=== PATIENT | female | born 1990 | race Caucasian/White ===

== ENCOUNTER 2017-12-25 01:55 | Inpatient (IN) | payer MEDICAID ==
[~2017-12-25] VITALS: Ht 177.8 cm; Wt 77.6 kg
[2017-12-25] MEDS ORDERED: BUSP5TAB20 PO (02:56)
[2017-12-25] MEDS ORDERED: ZIPR20CA2 PO (02:56)
[2017-12-25] MEDS ORDERED: LITH300C3 PO (02:56)
[2017-12-25 03:26] LABS: BASOPHILS % (AUTO) 0.6 % (0.0-2.0); EOSINOPHILS % (AUTO) 4.7 % (1.0-6.0); HEMATOCRIT 40.9 % (41-53); HEMOGLOBIN 14.6 g/dL (13.5-17.5); LYMPHOCYTES # (AUTO) 2.3 K/uL (1.0-4.8); LYMPHOCYTES % (AUTO) 32.1 % (22.0-44.0); MEAN CORPUSCULAR HEMOGLOBIN 30.6 pg (26.0-34.0); MEAN CORPUSCULAR HGB CONC 35.8 G/dL (31.0-37.0); MEAN CORPUSCULAR VOLUME 86 fL (80-100); MONOCYTES # (AUTO) 0.9 K/uL (0.1-1.0); MONOCYTES % (AUTO) 13.2 % (2.0-9.0); NEUTROPHILS # (AUTO) 3.5 K/uL (1.8-7.7); NEUTROPHILS % (AUTO) 49.4 % (40.0-70.0); PLATELET COUNT (AUTO) 295 K/uL (150-450); RED BLOOD CELL COUNT(AUTO) 4.78 MIL/uL (4.50-5.90); RED CELL DISTRIBUTION WIDTH 13.5 % (11.5-14.5)
[2017-12-25 03:31] LABS: ANION GAP 8 mmol/L (8-16); CALCIUM, TOTAL 8.7 mg/dL (8.8-10.5); CARBON DIOXIDE 29 mmol/L (22-29); CHLORIDE 103 mmol/L (98-107); CREATININE 1.04 mg/dL (0.60-1.30); GLOMERULAR FILTR. RATE CALC > 60 mL/min (>60); GLUCOSE,RANDOM 82 mg/dL (70-110); SODIUM SERUM 140 mmol/L (136-145); UREA NITROGEN, BLOOD 20 mg/dL (7-18)
[2017-12-25 03:36] LABS: ALANINE AMINOTRANSFERASE 55 U/L (12-78); ALBUMIN 3.9 g/dL (3.4-5.0); ALKALINE PHOSPHATASE 72 U/L (46-116); ASPARTATE AMINOTRANSFERASE 37 U/L (15-37); BILIRUBIN,TOTAL 0.6 mg/dL (0.1-1.0); TOTAL PROTEIN, SERUM 7.4 g/dL (6.4-8.2)
[2017-12-25] MEDS ORDERED: LORazepam 2 MG TABLET PO PRN (04:15)
[2017-12-25] MEDS ORDERED: HALOPERIDOL 5 MG TABLET PO PRN (04:15)
[2017-12-25] MEDS ORDERED: ZOLPIDEM TARTRATE 10 MG TABLET PO PRN (04:15)
[2017-12-25 04:46] LABS: AMPHET/METH SCREEN,URINE POSITIVE (NEGATIVE); BARBITURATE SCREEN, URINE NEGATIVE (NEGATIVE); BENZODIAZEPINES SCREEN,URINE NEGATIVE (NEGATIVE); CANNABINOID SCREEN,URINE NEGATIVE (NEGATIVE); COCAINE SCREEN,URINE NEGATIVE (NEGATIVE); METHADONE SCREEN, URINE NEGATIVE (NEGATIVE); OPIATE SCREEN,URINE NEGATIVE (NEGATIVE)
[2017-12-25 04:49] LABS: PHENCYCLIDINE SCREEN,URINE NEGATIVE (NEGATIVE)
[2017-12-25] MEDS ORDERED: DiphenhydrAMINE HCL 50 MG/ML VIAL IM ONE (10:30)
[2017-12-25] MEDS ORDERED: LORazepam 2 MG/ML VIAL IM ONE (10:30)
[2017-12-25] MEDS ORDERED: HALOPERIDOL LACTATE 5 MG/ML VIAL IM ONE (10:30)
[2017-12-26] MEDS: LITHIUM CARBONATE 300 MG CAPSULE PO SCH (09:00)
[2017-12-26] MEDS: BusPIRone HCL 5 MG TABLET PO SCH ×2 (09:00→21:00)
[2017-12-26] MEDS: ZIPRASIDONE HCL 40 MG CAPSULE PO SCH (17:30)
[2017-12-27] MEDS: ZIPRASIDONE HCL 40 MG CAPSULE PO SCH ×2 (07:01→17:15)
[2017-12-27] MEDS: BusPIRone HCL 5 MG TABLET PO SCH ×2 (09:27→20:28)
[2017-12-27] MEDS: LITHIUM CARBONATE 300 MG CAPSULE PO SCH (09:27)
[2017-12-27 16:36] VITALS: BP 119/80
[2017-12-28] MEDS: ZIPRASIDONE HCL 40 MG CAPSULE PO SCH (06:43)
[2017-12-28 08:39] VITALS: BP 119/75
[2017-12-28] MEDS: BusPIRone HCL 5 MG TABLET PO SCH ×3 (08:40→20:21)
[2017-12-28] MEDS: LITHIUM CARBONATE 300 MG CAPSULE PO SCH (08:40)
[2017-12-28] MEDS: ZIPRASIDONE HCL 20 MG CAPSULE PO SCH (17:38)
[2017-12-28 19:44] VITALS: BP 148/78
[2017-12-29] MEDS: ZIPRASIDONE HCL 20 MG CAPSULE PO SCH ×2 (07:02→16:58)
[2017-12-29 08:14] VITALS: BP 99/61
[2017-12-29] MEDS: LITHIUM CARBONATE 300 MG CAPSULE PO SCH (09:30)
[2017-12-29] MEDS: BusPIRone HCL 5 MG TABLET PO SCH ×2 (09:30→20:34)
[2017-12-30] MEDS: ZIPRASIDONE HCL 20 MG CAPSULE PO SCH ×2 (06:59→16:16)
[2017-12-30 08:05] VITALS: BP 116/61
[2017-12-30] MEDS: LITHIUM CARBONATE 300 MG CAPSULE PO SCH (08:34)
[2017-12-30] MEDS: BusPIRone HCL 5 MG TABLET PO SCH ×2 (08:34→20:25)
[2017-12-30 17:32] VITALS: BP 112/57
[2017-12-31] MEDS: ZIPRASIDONE HCL 20 MG CAPSULE PO SCH ×2 (06:33→16:52)
[2017-12-31] MEDS: BusPIRone HCL 5 MG TABLET PO SCH ×2 (08:27→20:13)
[2017-12-31] MEDS: LITHIUM CARBONATE 300 MG CAPSULE PO SCH (08:27)
[2017-12-31 16:58] VITALS: BP 121/64
[2018-01-01] MEDS: ZIPRASIDONE HCL 20 MG CAPSULE PO SCH (07:01)
[2018-01-01] MEDS: LITHIUM CARBONATE 300 MG CAPSULE PO SCH (08:30)
[2018-01-01] MEDS: BusPIRone HCL 5 MG TABLET PO SCH (08:30)
[2018-01-01 08:41] VITALS: BP 129/70
== END 2018-01-01 13:15 | disposition home or self-care (01) | DRG 750 ==
LOC: EDSEX 01:57 → EMS 01:57 → 3EC 14:49
DX: F25.0 Schizoaffective disorder, bipolar type (principal); E83.51 Hypocalcemia; R45.851 Suicidal ideations; F41.9 Anxiety disorder, unspecified; G47.00 Insomnia, unspecified; F19.10 Other psychoactive substance abuse, uncomplicated; F15.10 Other stimulant abuse, uncomplicated; Z79.899 Other long term (current) drug therapy; Z87.891 Personal history of nicotine dependence
CPT/HCPCS: 96372; 99285; G0480; J1200; J1630; J2060

== ENCOUNTER 2018-01-10 23:31 | Inpatient (IN) | payer MEDICAID ==
[~2018-01-10] VITALS: Ht 177.8 cm; Wt 68.5 kg
[~2018-01-10 23:31] MED LIST: BUSP5TAB20 PO; LITH300C3 PO; ZIPR20CA2 PO
[2018-01-11] MEDS ORDERED: ZOLPIDEM TARTRATE 10 MG TABLET PO PRN (05:00)
[2018-01-11] MEDS ORDERED: HALOPERIDOL 5 MG TABLET PO PRN (05:00)
[2018-01-11 05:44] VITALS: BP 120/71
[2018-01-11 08:30] VITALS: BP 151/63
[2018-01-11] MEDS ORDERED: ACETAMINOPHEN 325 MG TABLET PO PRN (11:00)
[2018-01-11] MEDS ORDERED: PETROLATUM,WHITE 71 GM JELLY TP PRN (11:00)
[2018-01-11] MEDS ORDERED: MAG HYDROX/AL HYDROX/SIMETH ES 30 ML SUSPENSION UDCUP PO PRN (11:00)
[2018-01-11] MEDS ORDERED: DOCUSATE SODIUM 100 MG CAPSULE PO PRN (11:00)
[2018-01-11] MEDS ORDERED: ALBUTEROL SULFATE HFA 90 MCG/PUFF 8 GM INHALER IH PRN (11:00)
[2018-01-11] MEDS ORDERED: IBUPROFEN 400 MG TABLET PO PRN (11:00)
[2018-01-11] MEDS ORDERED: ONDANSETRON HCL 4 MG TABLET PO PRN (11:00)
[2018-01-11] MEDS ORDERED: MAGNESIUM HYDROXIDE SUSPENSION 30 ML UDCUP PO PRN (11:00)
[2018-01-11 17:00] VITALS: BP 130/78
[2018-01-11] MEDS ORDERED: ZIPRASIDONE HCL 20 MG CAPSULE PO SCH (17:30)
[2018-01-11] MEDS: LITHIUM CARBONATE 300 MG CAPSULE PO SCH (17:45)
[2018-01-11] MEDS: BusPIRone HCL 5 MG TABLET PO SCH (21:17)
[2018-01-12] MEDS: ZIPRASIDONE HCL 40 MG CAPSULE PO SCH ×2 (07:08→17:30)
[2018-01-12 08:41] VITALS: BP 120/63
[2018-01-12] MEDS: BusPIRone HCL 5 MG TABLET PO SCH ×2 (08:48→20:48)
[2018-01-12] MEDS: LITHIUM CARBONATE 300 MG CAPSULE PO SCH ×2 (08:48→16:02)
[2018-01-12] MEDS: NICOTINE 14 MG/24 HOUR PATCH TD SCH (08:52)
[2018-01-12] MEDS: MUPIROCIN CALCIUM 2% 22 GM OINTMENT NASAL SCH (12:59)
[2018-01-12 18:17] VITALS: BP 111/58
[2018-01-13] MEDS: ZIPRASIDONE HCL 40 MG CAPSULE PO SCH ×2 (06:45→16:17)
[2018-01-13] MEDS: BusPIRone HCL 5 MG TABLET PO SCH ×2 (08:31→21:32)
[2018-01-13] MEDS: LITHIUM CARBONATE 300 MG CAPSULE PO SCH ×2 (08:31→16:17)
[2018-01-13] MEDS: MUPIROCIN CALCIUM 2% 22 GM OINTMENT NASAL SCH (09:00)
[2018-01-13] MEDS: NICOTINE 14 MG/24 HOUR PATCH TD SCH (09:00)
[2018-01-13 09:31] VITALS: BP 118/67
[2018-01-13 16:26] VITALS: BP 131/75
[2018-01-14] MEDS: ZIPRASIDONE HCL 40 MG CAPSULE PO SCH (06:48)
[2018-01-14] MEDS: BusPIRone HCL 5 MG TABLET PO SCH (08:15)
[2018-01-14] MEDS: LITHIUM CARBONATE 300 MG CAPSULE PO SCH ×2 (08:15→16:58)
[2018-01-14] MEDS: NICOTINE 14 MG/24 HOUR PATCH TD SCH (09:00)
[2018-01-14] MEDS: MUPIROCIN CALCIUM 2% 22 GM OINTMENT NASAL SCH (09:00)
[2018-01-14 10:06] VITALS: BP 104/62
[2018-01-14] MEDS: ZIPRASIDONE HCL 60 MG CAPSULE PO SCH (16:57)
[2018-01-14] MEDS: BusPIRone HCL 10 MG TABLET PO SCH (20:11)
[2018-01-15] MEDS: ZIPRASIDONE HCL 60 MG CAPSULE PO SCH (06:50)
[2018-01-15] MEDS: BusPIRone HCL 10 MG TABLET PO SCH ×2 (07:54→21:00)
[2018-01-15] MEDS: LITHIUM CARBONATE 300 MG CAPSULE PO SCH ×2 (07:54→16:27)
[2018-01-15] MEDS: MUPIROCIN CALCIUM 2% 22 GM OINTMENT NASAL SCH (07:57)
[2018-01-15] MEDS: LORazepam 2 MG TABLET PO PRN (08:01)
[2018-01-15] MEDS: NICOTINE 14 MG/24 HOUR PATCH TD SCH (09:00)
[2018-01-15 09:30] VITALS: BP 108/70
[2018-01-15] MEDS: ZIPRASIDONE HCL 80 MG CAPSULE PO SCH (16:27)
[2018-01-15 16:48] VITALS: BP 107/60
[2018-01-16] MEDS: ZIPRASIDONE HCL 60 MG CAPSULE PO SCH (06:52)
[2018-01-16] MEDS: MUPIROCIN CALCIUM 2% 22 GM OINTMENT NASAL SCH (08:16)
[2018-01-16] MEDS: BusPIRone HCL 10 MG TABLET PO SCH ×2 (08:18→20:36)
[2018-01-16] MEDS: LITHIUM CARBONATE 300 MG CAPSULE PO SCH ×2 (08:18→18:03)
[2018-01-16] MEDS: NICOTINE 14 MG/24 HOUR PATCH TD SCH (08:23)
[2018-01-16 08:30] VITALS: BP 123/70
[2018-01-16] MEDS: ZIPRASIDONE HCL 80 MG CAPSULE PO SCH (18:03)
[2018-01-16] MEDS: LORazepam 2 MG TABLET PO PRN (22:15)
[2018-01-17] MEDS: ZIPRASIDONE HCL 60 MG CAPSULE PO SCH (06:45)
[2018-01-17 08:04] VITALS: BP 138/90
[2018-01-17] MEDS: MUPIROCIN CALCIUM 2% 22 GM OINTMENT NASAL SCH (08:07)
[2018-01-17] MEDS: LITHIUM CARBONATE 300 MG CAPSULE PO SCH (08:07)
[2018-01-17] MEDS: BusPIRone HCL 10 MG TABLET PO SCH (08:07)
[2018-01-17] MEDS: LORazepam 2 MG TABLET PO PRN (08:27)
[2018-01-17] MEDS ORDERED: BUSP10TA23 PO (08:43)
[2018-01-17] MEDS ORDERED: ZIPR60CA2 PO (08:43)
[2018-01-17] MEDS ORDERED: LITH300C3 PO (08:43)
[2018-01-17] MEDS ORDERED: ZIPR80CA2 PO (08:43)
[2018-01-17] MEDS: NICOTINE 14 MG/24 HOUR PATCH TD SCH (09:00)
== END 2018-01-17 13:30 | disposition home or self-care (01) | DRG 750 ==
LOC: EDSEX → 3EC 01-11 01:30
DX: F25.1 Schizoaffective disorder, depressive type (principal); R45.851 Suicidal ideations; E83.51 Hypocalcemia; F41.9 Anxiety disorder, unspecified; G47.00 Insomnia, unspecified; F19.10 Other psychoactive substance abuse, uncomplicated; F17.200 Nicotine dependence, unspecified, uncomplicated; F64.9 Gender identity disorder, unspecified; Z91.19 Patient's noncompliance with other medical treatment and regimen; Z79.899 Other long term (current) drug therapy; Z65.3 Problems related to other legal circumstances
CPT/HCPCS: 87081

== ENCOUNTER 2018-04-12 18:07 | Inpatient (IN) | payer MEDICAID ==
[~2018-04-12] VITALS: Ht 177.8 cm; Wt 75.1 kg
[~2018-04-12 18:07] MED LIST changes: +BUSP10TA23 PO; -BUSP5TAB20 PO; -ZIPR20CA2 PO; +ZIPR60CA2 PO; +ZIPR80CA2 PO
[2018-04-12 19:30] LABS: BASOPHILS % (AUTO) 0.3 % (0.0-2.0); EOSINOPHILS % (AUTO) 1.6 % (1.0-6.0); HEMATOCRIT 41.8 % (36-46); HEMOGLOBIN 14.2 g/dL (12.0-16.0); LYMPHOCYTES # (AUTO) 1.7 K/uL (1.0-4.8); LYMPHOCYTES % (AUTO) 22.8 % (22.0-44.0); MEAN CORPUSCULAR HEMOGLOBIN 30.1 pg (26.0-34.0); MEAN CORPUSCULAR HGB CONC 34.1 G/dL (31.0-37.0); MEAN CORPUSCULAR VOLUME 88 fL (80-100); MONOCYTES # (AUTO) 0.7 K/uL (0.1-1.0); MONOCYTES % (AUTO) 10.3 % (2.0-9.0); NEUTROPHILS # (AUTO) 4.7 K/uL (1.8-7.7); PLATELET COUNT (AUTO) 233 K/uL (150-450); RED BLOOD CELL COUNT(AUTO) 4.74 MIL/uL (4.00-5.20); RED CELL DISTRIBUTION WIDTH 12.9 % (11.5-14.5)
[2018-04-12 19:43] LABS: ANION GAP 6 mmol/L (8-16); CALCIUM, TOTAL 8.6 mg/dL (8.8-10.5); CARBON DIOXIDE 31 mmol/L (22-29); CHLORIDE 101 mmol/L (98-107); CREATININE 0.98 mg/dL (0.60-1.30); GLOMERULAR FILTR. RATE CALC > 60 mL/min (>60); GLUCOSE,RANDOM 89 mg/dL (70-110); POTASSIUM 3.8 mmol/L (3.5-5.1); SODIUM SERUM 138 mmol/L (136-145); UREA NITROGEN, BLOOD 15 mg/dL (7-18)
[2018-04-12 19:48] LABS: ALANINE AMINOTRANSFERASE 29 U/L (12-78); ALBUMIN 3.7 g/dL (3.4-5.0); ALKALINE PHOSPHATASE 55 U/L (46-116); ASPARTATE AMINOTRANSFERASE 13 U/L (15-37); BILIRUBIN,TOTAL 0.2 mg/dL (0.1-1.0); TOTAL PROTEIN, SERUM 7.1 g/dL (6.4-8.2)
[2018-04-12 20:22] LABS: LITHIUM < 0.20 mmol/L (0.60-1.20)
[2018-04-12 22:03] VITALS: BP 142/76
[2018-04-12] MEDS ORDERED: PNEUMOCOCCAL VACCINE POLYVALENT 0.5 ML VIAL [PPSV23] IM ONE (22:45)
[2018-04-12 22:58] VITALS: BP 142/76
[2018-04-12] MEDS ORDERED: ONDANSETRON HCL 4 MG TABLET PO PRN (23:00)
[2018-04-12] MEDS ORDERED: ACETAMINOPHEN 325 MG TABLET PO PRN (23:00)
[2018-04-12] MEDS ORDERED: DOCUSATE SODIUM 100 MG CAPSULE PO PRN (23:00)
[2018-04-12] MEDS ORDERED: LOPERAMIDE HCL 2 MG CAPSULE PO PRN (23:00)
[2018-04-12] MEDS ORDERED: CloNIDine HCL 0.1 MG TABLET PO PRN (23:00)
[2018-04-12] MEDS ORDERED: IBUPROFEN 400 MG TABLET PO PRN (23:00)
[2018-04-12] MEDS ORDERED: GuaiFENesin/D-METHORPHAN [SUGAR-FREE] 200-20MG/10 ML SYRUP UDCUP PO PRN (23:00)
[2018-04-12] MEDS ORDERED: ALBUTEROL SULFATE HFA 90 MCG/PUFF 8 GM INHALER IH PRN (23:00)
[2018-04-12] MEDS ORDERED: MAG HYDROX/AL HYDROX/SIMETH ES 30 ML SUSPENSION UDCUP PO PRN (23:00)
[2018-04-12] MEDS ORDERED: PETROLATUM,WHITE 71 GM JELLY TP PRN (23:00)
[2018-04-13] MEDS: ZIPRASIDONE HCL 60 MG CAPSULE PO SCH (13:38)
[2018-04-13 16:30] VITALS: BP 130/85
[2018-04-13] MEDS: LITHIUM CARBONATE 300 MG CAPSULE PO SCH (17:23)
[2018-04-13] MEDS: ZIPRASIDONE HCL 80 MG CAPSULE PO SCH (17:23)
[2018-04-13] MEDS: BusPIRone HCL 10 MG TABLET PO SCH (17:23)
[2018-04-14] MEDS: ZIPRASIDONE HCL 80 MG CAPSULE PO SCH (07:23)
[2018-04-14] MEDS: ZIPRASIDONE HCL 60 MG CAPSULE PO SCH (07:25)
[2018-04-14] MEDS: BusPIRone HCL 10 MG TABLET PO SCH ×2 (08:48→16:33)
[2018-04-14] MEDS: LITHIUM CARBONATE 300 MG CAPSULE PO SCH ×2 (08:48→16:33)
[2018-04-14 09:31] VITALS: BP 100/45
[2018-04-14 19:32] VITALS: BP 127/56
[2018-04-15] MEDS: ZIPRASIDONE HCL 60 MG CAPSULE PO SCH (07:02)
[2018-04-15] MEDS: LITHIUM CARBONATE 300 MG CAPSULE PO SCH ×2 (09:52→17:07)
[2018-04-15] MEDS: BusPIRone HCL 10 MG TABLET PO SCH ×2 (09:52→17:07)
[2018-04-15 13:00] VITALS: BP 122/74
[2018-04-15] MEDS: HALOPERIDOL 5 MG TABLET PO PRN (13:10)
[2018-04-15] MEDS: LORazepam 2 MG TABLET PO PRN (13:10)
[2018-04-15 17:02] VITALS: BP 124/67
[2018-04-15] MEDS: ZIPRASIDONE HCL 80 MG CAPSULE PO SCH (17:07)
[2018-04-15] MEDS: MUPIROCIN CALCIUM 2% 22 GM OINTMENT NASAL SCH (21:27)
[2018-04-15] MEDS: ZOLPIDEM TARTRATE 10 MG TABLET PO PRN (21:34)
[2018-04-16] MEDS: ZIPRASIDONE HCL 60 MG CAPSULE PO SCH (06:48)
[2018-04-16 08:05] VITALS: BP 112/80
[2018-04-16] MEDS: BusPIRone HCL 10 MG TABLET PO SCH ×2 (09:09→17:31)
[2018-04-16] MEDS: LITHIUM CARBONATE 300 MG CAPSULE PO SCH ×2 (09:09→17:31)
[2018-04-16] MEDS: MUPIROCIN CALCIUM 2% 22 GM OINTMENT NASAL SCH ×2 (09:11→17:31)
[2018-04-16] MEDS: LORazepam 2 MG TABLET PO PRN (13:00)
[2018-04-16] MEDS: ZIPRASIDONE HCL 80 MG CAPSULE PO SCH (17:32)
[2018-04-16 18:15] VITALS: BP 108/72
[2018-04-17] VITALS: BP 122/76
[2018-04-17] MEDS: ZIPRASIDONE HCL 60 MG CAPSULE PO SCH (06:56)
[2018-04-17 08:05] VITALS: BP 107/68
[2018-04-17] MEDS: BusPIRone HCL 10 MG TABLET PO SCH ×2 (09:47→16:51)
[2018-04-17] MEDS: LITHIUM CARBONATE 300 MG CAPSULE PO SCH ×2 (09:47→16:50)
[2018-04-17] MEDS: MUPIROCIN CALCIUM 2% 22 GM OINTMENT NASAL SCH ×2 (09:47→16:50)
[2018-04-17] MEDS: ZIPRASIDONE HCL 80 MG CAPSULE PO SCH (16:50)
[2018-04-17] MEDS: HALOPERIDOL 5 MG TABLET PO PRN ×2 (18:13→22:26)
[2018-04-17] MEDS: ZOLPIDEM TARTRATE 10 MG TABLET PO PRN (20:54)
[2018-04-17 21:41] VITALS: BP 112/70
[2018-04-18] MEDS: ZIPRASIDONE HCL 80 MG CAPSULE PO SCH ×2 (06:46→16:05)
[2018-04-18] MEDS: HALOPERIDOL 5 MG TABLET PO PRN ×3 (07:00→20:26)
[2018-04-18] MEDS: MUPIROCIN CALCIUM 2% 22 GM OINTMENT NASAL SCH ×2 (08:26→16:06)
[2018-04-18] MEDS: BusPIRone HCL 10 MG TABLET PO SCH ×2 (08:27→16:04)
[2018-04-18] MEDS: LITHIUM CARBONATE 300 MG CAPSULE PO SCH ×2 (08:27→16:05)
[2018-04-18] MEDS: LORazepam 2 MG TABLET PO PRN (08:29)
[2018-04-18 14:21] VITALS: BP 131/75
[2018-04-18 19:17] VITALS: BP 139/56
[2018-04-19] MEDS: ZIPRASIDONE HCL 80 MG CAPSULE PO SCH ×2 (07:19→17:18)
[2018-04-19 08:00] VITALS: BP 138/81
[2018-04-19] MEDS: MUPIROCIN CALCIUM 2% 22 GM OINTMENT NASAL SCH ×2 (09:00→17:17)
[2018-04-19] MEDS: BusPIRone HCL 10 MG TABLET PO SCH ×2 (09:27→17:18)
[2018-04-19] MEDS: LITHIUM CARBONATE 300 MG CAPSULE PO SCH ×2 (09:27→17:18)
[2018-04-19] MEDS: TESTOSTERONE CYPIONATE 200 MG/ML VIAL IM SCH (09:41)
[2018-04-19] MEDS: MAGNESIUM HYDROXIDE SUSPENSION 30 ML UDCUP PO PRN (13:40)
[2018-04-19 19:38] VITALS: BP 107/64
[2018-04-19] MEDS: HALOPERIDOL 5 MG TABLET PO PRN (20:30)
[2018-04-20] MEDS: ZIPRASIDONE HCL 80 MG CAPSULE PO SCH ×2 (06:56→16:46)
[2018-04-20 08:32] VITALS: BP 126/72
[2018-04-20] MEDS: MUPIROCIN CALCIUM 2% 22 GM OINTMENT NASAL SCH ×2 (09:25→16:46)
[2018-04-20] MEDS: BusPIRone HCL 10 MG TABLET PO SCH ×2 (09:25→16:46)
[2018-04-20] MEDS: HALOPERIDOL 5 MG TABLET PO PRN ×2 (09:26→19:54)
[2018-04-20] MEDS: LORazepam 2 MG TABLET PO PRN (09:26)
[2018-04-20] MEDS: LITHIUM CARBONATE 300 MG CAPSULE PO SCH ×2 (09:26→16:46)
[2018-04-20 17:00] VITALS: BP 149/58
[2018-04-21] MEDS: ZIPRASIDONE HCL 80 MG CAPSULE PO SCH ×2 (07:01→16:35)
[2018-04-21] MEDS: LITHIUM CARBONATE 300 MG CAPSULE PO SCH ×2 (09:03→16:35)
[2018-04-21] MEDS: BusPIRone HCL 10 MG TABLET PO SCH ×2 (09:03→16:34)
[2018-04-21 10:17] VITALS: BP 110/71
[2018-04-21] MEDS: MAGNESIUM HYDROXIDE SUSPENSION 30 ML UDCUP PO PRN ×2 (12:59→20:52)
[2018-04-21] MEDS: HALOPERIDOL 5 MG TABLET PO PRN (20:23)
[2018-04-22] MEDS: ZIPRASIDONE HCL 80 MG CAPSULE PO SCH ×2 (06:57→17:17)
[2018-04-22] MEDS: LITHIUM CARBONATE 300 MG CAPSULE PO SCH ×2 (09:44→17:17)
[2018-04-22] MEDS: BusPIRone HCL 10 MG TABLET PO SCH ×2 (09:44→17:17)
[2018-04-22] MEDS: MAGNESIUM HYDROXIDE SUSPENSION 30 ML UDCUP PO PRN ×2 (09:45→20:35)
[2018-04-22 09:48] VITALS: BP 101/54
[2018-04-22] MEDS: ZOLPIDEM TARTRATE 10 MG TABLET PO PRN (20:46)
[2018-04-22] MEDS: HALOPERIDOL 5 MG TABLET PO PRN (20:46)
[2018-04-22] MEDS: LORazepam 2 MG TABLET PO PRN (20:46)
[2018-04-22 22:08] VITALS: BP 150/71
[2018-04-23 05:35] VITALS: BP 135/81
[2018-04-23] MEDS: ZIPRASIDONE HCL 80 MG CAPSULE PO SCH ×2 (06:48→16:31)
[2018-04-23 09:37] VITALS: BP 125/79
[2018-04-23] MEDS: BusPIRone HCL 10 MG TABLET PO SCH ×2 (09:45→16:31)
[2018-04-23] MEDS: LITHIUM CARBONATE 300 MG CAPSULE PO SCH ×2 (09:45→16:31)
[2018-04-23] MEDS: MAGNESIUM HYDROXIDE SUSPENSION 30 ML UDCUP PO PRN (16:33)
[2018-04-23 17:47] VITALS: BP 122/73
[2018-04-24] MEDS: ZIPRASIDONE HCL 80 MG CAPSULE PO SCH ×2 (06:52→16:46)
[2018-04-24 08:22] VITALS: BP 125/76
[2018-04-24] MEDS: LITHIUM CARBONATE 300 MG CAPSULE PO SCH ×2 (10:13→16:46)
[2018-04-24] MEDS: BusPIRone HCL 10 MG TABLET PO SCH ×2 (10:13→16:46)
[2018-04-24 17:21] VITALS: BP 111/68
[2018-04-24 17:23] VITALS: BP 111/68
[2018-04-24] MEDS: HALOPERIDOL 5 MG TABLET PO PRN (20:56)
[2018-04-25] MEDS: ZIPRASIDONE HCL 80 MG CAPSULE PO SCH ×2 (06:31→16:24)
[2018-04-25] MEDS: BusPIRone HCL 10 MG TABLET PO SCH ×2 (10:26→17:59)
[2018-04-25] MEDS: LITHIUM CARBONATE 300 MG CAPSULE PO SCH ×2 (10:26→17:59)
[2018-04-25] MEDS: HALOPERIDOL 5 MG TABLET PO PRN (20:45)
[2018-04-26] MEDS: ZIPRASIDONE HCL 80 MG CAPSULE PO SCH ×2 (06:50→17:47)
[2018-04-26] MEDS: BusPIRone HCL 10 MG TABLET PO SCH ×2 (10:43→17:47)
[2018-04-26] MEDS: LITHIUM CARBONATE 300 MG CAPSULE PO SCH ×2 (10:44→17:47)
[2018-04-26] MEDS: TESTOSTERONE CYPIONATE 200 MG/ML VIAL IM SCH (11:23)
[2018-04-26 19:06] VITALS: BP 141/78
[2018-04-27] MEDS: ZIPRASIDONE HCL 80 MG CAPSULE PO SCH ×2 (06:51→16:34)
[2018-04-27 08:05] VITALS: BP 129/75
[2018-04-27] MEDS: BusPIRone HCL 10 MG TABLET PO SCH ×2 (08:55→16:34)
[2018-04-27] MEDS: LITHIUM CARBONATE 300 MG CAPSULE PO SCH ×2 (08:55→17:34)
[2018-04-27] MEDS: HALOPERIDOL 5 MG TABLET PO PRN (10:07)
[2018-04-27 16:00] VITALS: BP 110/60
[2018-04-27] MEDS: LORazepam 2 MG TABLET PO PRN (17:34)
[2018-04-28] MEDS: ZIPRASIDONE HCL 80 MG CAPSULE PO SCH ×2 (06:45→17:15)
[2018-04-28] MEDS: BusPIRone HCL 10 MG TABLET PO SCH ×2 (10:07→17:14)
[2018-04-28] MEDS: LITHIUM CARBONATE 300 MG CAPSULE PO SCH ×2 (10:07→17:14)
[2018-04-28] MEDS: LORazepam 2 MG TABLET PO PRN (10:53)
[2018-04-28 16:40] VITALS: BP 120/72
[2018-04-28] MEDS: HALOPERIDOL 5 MG TABLET PO PRN (23:40)
[2018-04-29] MEDS: LORazepam 2 MG TABLET PO PRN (00:17)
[2018-04-29 00:45] VITALS: BP 129/84
[2018-04-29] MEDS: ZIPRASIDONE HCL 80 MG CAPSULE PO SCH ×2 (06:50→17:52)
[2018-04-29 09:31] VITALS: BP 136/72
[2018-04-29] MEDS: BusPIRone HCL 10 MG TABLET PO SCH ×2 (09:32→16:26)
[2018-04-29] MEDS: LITHIUM CARBONATE 300 MG CAPSULE PO SCH ×2 (09:32→16:26)
[2018-04-29 21:39] VITALS: BP 123/64
[2018-04-30] MEDS: ZIPRASIDONE HCL 80 MG CAPSULE PO SCH (07:08)
[2018-04-30 08:00] VITALS: BP 129/60
[2018-04-30] MEDS: LITHIUM CARBONATE 300 MG CAPSULE PO SCH (09:00)
[2018-04-30] MEDS: BusPIRone HCL 10 MG TABLET PO SCH (09:00)
[2018-04-30] MEDS ORDERED: BUSP10TA23 PO (12:40)
[2018-04-30] MEDS ORDERED: LITH600 PO (12:47)
[2018-04-30] MEDS ORDERED: ZIPR80CA2 PO (12:48)
[2018-04-30] MEDS ORDERED: TEST200V27 IM (12:52)
== END 2018-04-30 14:39 | disposition home or self-care (01) | DRG 750 ==
LOC: EMS 18:08 → 3EI 21:00
PROVIDERS: ADMIT Psychiatry & Neurology Psychiatry; ATTEND Psychiatry & Neurology Psychiatry
DX: F25.0 Schizoaffective disorder, bipolar type (principal); R45.851 Suicidal ideations; Z59.0 Homelessness; F17.200 Nicotine dependence, unspecified, uncomplicated; F41.9 Anxiety disorder, unspecified; F64.9 Gender identity disorder, unspecified; G47.00 Insomnia, unspecified; Z65.3 Problems related to other legal circumstances; Z28.21 Immunization not carried out because of patient refusal
CPT/HCPCS: 87081; G0480; J1071

== ENCOUNTER 2018-08-07 14:31 | Emergency (ER) | payer MEDICAID, OTHER ==
[~2018-08-07] VITALS: Ht 177.8 cm; Wt 72.7 kg
[~2018-08-07 14:31] MED LIST changes: -LITH300C3 PO; +LITH600 PO; +TEST200V27 IM; -ZIPR60CA2 PO
[2018-08-07 15:53] LABS: ANION GAP 8 mmol/L (8-16); CALCIUM, TOTAL 8.7 mg/dL (8.8-10.5); CARBON DIOXIDE 28 mmol/L (22-29); CHLORIDE 104 mmol/L (98-107); CREATININE 1.03 mg/dL (0.60-1.30); GLOMERULAR FILTR. RATE CALC > 60 mL/min (>60); GLUCOSE,RANDOM 80 mg/dL (70-110); POTASSIUM 3.8 mmol/L (3.5-5.1); SODIUM SERUM 140 mmol/L (136-145); UREA NITROGEN, BLOOD 16 mg/dL (7-18)
[2018-08-07 15:55] LABS: BASOPHILS % (AUTO) 0.6 % (0.0-2.0); EOSINOPHILS % (AUTO) 6.4 % (1.0-6.0); HEMOGLOBIN 15.1 g/dL (13.5-17.5); LYMPHOCYTES # (AUTO) 1.6 K/uL (1.0-4.8); LYMPHOCYTES % (AUTO) 27.8 % (22.0-44.0); MEAN CORPUSCULAR HEMOGLOBIN 29.8 pg (26.0-34.0); MEAN CORPUSCULAR HGB CONC 33.6 G/dL (31.0-37.0); MEAN CORPUSCULAR VOLUME 89 fL (80-100); MONOCYTES # (AUTO) 0.6 K/uL (0.1-1.0); MONOCYTES % (AUTO) 10.6 % (2.0-9.0); NEUTROPHILS # (AUTO) 3.2 K/uL (1.8-7.7); NEUTROPHILS % (AUTO) 54.6 % (40.0-70.0); PLATELET COUNT (AUTO) 218 K/uL (150-450); RED BLOOD CELL COUNT(AUTO) 5.09 MIL/uL (4.50-5.90); RED CELL DISTRIBUTION WIDTH 12.6 % (11.5-14.5)
[2018-08-07 15:58] LABS: ALANINE AMINOTRANSFERASE 31 U/L (12-78); ALBUMIN 3.6 g/dL (3.4-5.0); ALKALINE PHOSPHATASE 49 U/L (46-116); ASPARTATE AMINOTRANSFERASE 20 U/L (15-37); BILIRUBIN,TOTAL 0.3 mg/dL (0.1-1.0); TOTAL PROTEIN, SERUM 6.6 g/dL (6.4-8.2)
[2018-08-07 16:27] LABS: PLATELET MORPHOLOGY COMMENT NORMAL
[2018-08-07] MEDS ORDERED: KETOROLAC TROMETHAMINE 10 MG TABLET PO ONE (17:15)
[2018-08-07 17:26] VITALS: BP 111/65
== END 2018-08-07 17:37 | disposition home or self-care (01) ==
LOC: EMS 14:32
DX: M94.0 Chondrocostal junction syndrome [Tietze] (principal); F20.9 Schizophrenia, unspecified; Z79.899 Other long term (current) drug therapy; Z87.891 Personal history of nicotine dependence
CPT/HCPCS: 93005

== ENCOUNTER 2018-09-21 19:29 | Inpatient (IN) | payer MEDICAID, OTHER ==
[~2018-09-21] VITALS: Ht 177.8 cm; Wt 76.9 kg
[2018-09-21 20:15] LABS: BASOPHILS % (AUTO) 0.4 % (0.0-2.0); EOSINOPHILS % (AUTO) 5.4 % (1.0-6.0); HEMATOCRIT 39.8 % (41-53); HEMOGLOBIN 13.9 g/dL (13.5-17.5); LYMPHOCYTES # (AUTO) 1.9 K/uL (1.0-4.8); LYMPHOCYTES % (AUTO) 32.5 % (22.0-44.0); MEAN CORPUSCULAR HEMOGLOBIN 29.7 pg (26.0-34.0); MEAN CORPUSCULAR HGB CONC 34.9 G/dL (31.0-37.0); MEAN CORPUSCULAR VOLUME 85 fL (80-100); MONOCYTES # (AUTO) 0.7 K/uL (0.1-1.0); MONOCYTES % (AUTO) 12.5 % (2.0-9.0); NEUTROPHILS # (AUTO) 2.9 K/uL (1.8-7.7); NEUTROPHILS % (AUTO) 49.2 % (40.0-70.0); PLATELET COUNT (AUTO) 233 K/uL (150-450); RED BLOOD CELL COUNT(AUTO) 4.67 MIL/uL (4.50-5.90); RED CELL DISTRIBUTION WIDTH 12.7 % (11.5-14.5)
[2018-09-21 20:30] LABS: ANION GAP 4 mmol/L (8-16); CALCIUM, TOTAL 8.9 mg/dL (8.8-10.5); CARBON DIOXIDE 31 mmol/L (22-29); CHLORIDE 104 mmol/L (98-107); CREATININE 1.11 mg/dL (0.60-1.30); GLOMERULAR FILTR. RATE CALC > 60 mL/min (>60); GLUCOSE,RANDOM 67 mg/dL (70-110); POTASSIUM 3.5 mmol/L (3.5-5.1); SODIUM SERUM 139 mmol/L (136-145); UREA NITROGEN, BLOOD 19 mg/dL (7-18)
[2018-09-21 20:38] LABS: ALANINE AMINOTRANSFERASE 52 U/L (12-78); ALBUMIN 3.4 g/dL (3.4-5.0); ALKALINE PHOSPHATASE 65 U/L (46-116); ASPARTATE AMINOTRANSFERASE 67 U/L (15-37); BILIRUBIN,TOTAL 0.8 mg/dL (0.1-1.0); TOTAL PROTEIN, SERUM 6.6 g/dL (6.4-8.2)
[2018-09-21 21:32] LABS: AMPHET/METH SCREEN,URINE NEGATIVE (NEGATIVE); BARBITURATE SCREEN, URINE NEGATIVE (NEGATIVE); BENZODIAZEPINES SCREEN,URINE NEGATIVE (NEGATIVE); CANNABINOID SCREEN,URINE NEGATIVE (NEGATIVE); COCAINE SCREEN,URINE NEGATIVE (NEGATIVE); METHADONE SCREEN, URINE NEGATIVE (NEGATIVE); OPIATE SCREEN,URINE NEGATIVE (NEGATIVE)
[2018-09-21 21:35] LABS: PHENCYCLIDINE SCREEN,URINE NEGATIVE (NEGATIVE)
[2018-09-21 22:35] LABS: HCG,QUANTITATIVE < 1 mIU/mL (0-6)
[2018-09-21 22:44] LABS: LITHIUM 1.27 mmol/L (0.60-1.20)
[2018-09-22] MEDS ORDERED: ZOLPIDEM TARTRATE 10 MG TABLET PO PRN (01:45)
[2018-09-22] MEDS ORDERED: LORazepam 2 MG TABLET PO PRN (01:45)
[2018-09-22] MEDS ORDERED: HALOPERIDOL 5 MG TABLET PO PRN (01:45)
[2018-09-22 03:00] VITALS: BP 132/95
[2018-09-22] MEDS ORDERED: ALBUTEROL SULFATE HFA 90 MCG/PUFF 8 GM INHALER IH PRN (07:15)
[2018-09-22] MEDS ORDERED: MAG HYDROX/AL HYDROX/SIMETH ES 30 ML SUSPENSION UDCUP PO PRN (07:15)
[2018-09-22] MEDS ORDERED: ONDANSETRON HCL 4 MG TABLET PO PRN (07:15)
[2018-09-22] MEDS ORDERED: NICOTINE 14 MG/24 HOUR PATCH TD PRN (07:15)
[2018-09-22] MEDS ORDERED: IBUPROFEN 400 MG TABLET PO PRN (07:15)
[2018-09-22] MEDS ORDERED: MAGNESIUM HYDROXIDE SUSPENSION 30 ML UDCUP PO PRN (07:15)
[2018-09-22] MEDS ORDERED: GuaiFENesin/D-METHORPHAN [SUGAR-FREE] 200-20MG/10 ML SYRUP UDCUP PO PRN (07:15)
[2018-09-22] MEDS ORDERED: DOCUSATE SODIUM 100 MG CAPSULE PO PRN (07:15)
[2018-09-22] MEDS ORDERED: ACETAMINOPHEN 325 MG TABLET PO PRN (07:15)
[2018-09-22] MEDS ORDERED: CloNIDine HCL 0.1 MG TABLET PO PRN (07:15)
[2018-09-22] MEDS ORDERED: LOPERAMIDE HCL 2 MG CAPSULE PO PRN (07:15)
[2018-09-22] MEDS ORDERED: PETROLATUM,WHITE 71 GM JELLY TP PRN (07:15)
[2018-09-22] MEDS: BusPIRone HCL 10 MG TABLET PO SCH ×2 (10:24→16:10)
[2018-09-22 16:08] VITALS: BP 139/66
[2018-09-22] MEDS: LITHIUM CARBONATE 300 MG TABLET PO SCH (16:10)
[2018-09-22] MEDS: ZIPRASIDONE HCL 40 MG CAPSULE PO SCH (16:10)
[2018-09-23] MEDS: ZIPRASIDONE HCL 40 MG CAPSULE PO SCH ×2 (06:04→16:05)
[2018-09-23 07:00] VITALS: BP 108/60
[2018-09-23 08:06] VITALS: BP 115/65
[2018-09-23] MEDS: LITHIUM CARBONATE 300 MG TABLET PO SCH ×2 (08:38→16:05)
[2018-09-23] MEDS: BusPIRone HCL 10 MG TABLET PO SCH ×2 (08:38→16:05)
[2018-09-23 16:02] VITALS: BP_SYST 125; BP_SYST 136; BP_DIAS 69; BP_DIAS 71
[2018-09-24 05:37] VITALS: BP 121/86
[2018-09-24] MEDS: ZIPRASIDONE HCL 40 MG CAPSULE PO SCH (07:01)
[2018-09-24 07:59] VITALS: BP 100/62
[2018-09-24] MEDS: BusPIRone HCL 10 MG TABLET PO SCH ×2 (08:45→16:35)
[2018-09-24] MEDS: LITHIUM CARBONATE 300 MG TABLET PO SCH ×2 (08:45→16:35)
[2018-09-24 16:08] VITALS: BP 112/63
[2018-09-24] MEDS: ZIPRASIDONE HCL 80 MG CAPSULE PO SCH (16:35)
[2018-09-25] MEDS: ZIPRASIDONE HCL 80 MG CAPSULE PO SCH (06:04)
[2018-09-25 06:17] VITALS: BP 110/64
[2018-09-25] MEDS: BusPIRone HCL 10 MG TABLET PO SCH (08:05)
[2018-09-25] MEDS: LITHIUM CARBONATE 300 MG TABLET PO SCH (08:05)
== END 2018-09-25 07:20 | disposition home or self-care (01) | DRG 750 ==
LOC: EMS 19:29 → EDSEX 19:29 → B3A 09-22 01:00
DX: F25.1 Schizoaffective disorder, depressive type (principal); R45.851 Suicidal ideations; R74.0 Nonspecific elevation of levels of transaminase and lactic acid dehydrogenase [LDH]; K59.00 Constipation, unspecified; Z87.891 Personal history of nicotine dependence; G47.00 Insomnia, unspecified; X83.8XXA Intentional self-harm by other specified means, initial encounter; Y93.89 Activity, other specified; Y92.89 Other specified places as the place of occurrence of the external cause; Y99.8 Other external cause status; S41.119A Laceration without foreign body of unspecified upper arm, initial encounter; Z91.5 Personal history of self-harm; Z65.3 Problems related to other legal circumstances; F41.9 Anxiety disorder, unspecified
CPT/HCPCS: G0480

== ENCOUNTER 2018-10-23 12:07 | Inpatient (IN) | payer MEDICAID, OTHER ==
[~2018-10-23] VITALS: Ht 177.8 cm; Wt 75.5 kg
[2018-10-23 13:09] LABS: BASOPHILS % (AUTO) 0.4 % (0.0-2.0); EOSINOPHILS % (AUTO) 1.7 % (1.0-6.0); HEMATOCRIT 40.2 % (36-46); HEMOGLOBIN 13.6 g/dL (12.0-16.0); LYMPHOCYTES # (AUTO) 0.7 K/uL (1.0-4.8); LYMPHOCYTES % (AUTO) 10.8 % (22.0-44.0); MEAN CORPUSCULAR HEMOGLOBIN 29.9 pg (26.0-34.0); MEAN CORPUSCULAR HGB CONC 33.8 G/dL (31.0-37.0); MEAN CORPUSCULAR VOLUME 89 fL (80-100); MONOCYTES # (AUTO) 0.6 K/uL (0.1-1.0); MONOCYTES % (AUTO) 9.3 % (2.0-9.0); NEUTROPHILS # (AUTO) 5.1 K/uL (1.8-7.7); NEUTROPHILS % (AUTO) 77.8 % (40.0-70.0); PLATELET COUNT (AUTO) 218 K/uL (150-450); RED BLOOD CELL COUNT(AUTO) 4.54 MIL/uL (4.00-5.20); RED CELL DISTRIBUTION WIDTH 12.8 % (11.5-14.5)
[2018-10-23 13:30] LABS: ANION GAP 10 mmol/L (8-16); CARBON DIOXIDE 26 mmol/L (22-29); CHLORIDE 105 mmol/L (98-107); CREATININE 0.96 mg/dL (0.60-1.30); GLOMERULAR FILTR. RATE CALC > 60 mL/min (>60); GLUCOSE,RANDOM 88 mg/dL (70-110); POTASSIUM 4.3 mmol/L (3.5-5.1); SODIUM SERUM 141 mmol/L (136-145); UREA NITROGEN, BLOOD 19 mg/dL (7-18)
[2018-10-23 13:31] LABS: SALICYLATE 1.4 mg/dL (2.8-20.0)
[2018-10-23 13:36] LABS: ACETAMINOPHEN < 2 mcg/mL (10-30); ALANINE AMINOTRANSFERASE 27 U/L (12-78); ALBUMIN 3.7 g/dL (3.4-5.0); ALKALINE PHOSPHATASE 64 U/L (46-116); ASPARTATE AMINOTRANSFERASE 27 U/L (15-37); BILIRUBIN,TOTAL 0.6 mg/dL (0.1-1.0); HCG,QUANTITATIVE < 1 mIU/mL (0-6); TOTAL PROTEIN, SERUM 6.8 g/dL (6.4-8.2)
[2018-10-23] MEDS ORDERED: SODIUM CHLORIDE 0.9% 1,000 ML IV ONE (14:45)
[2018-10-23 16:36] LABS: SALICYLATE 0.6 mg/dL (2.8-20.0)
[2018-10-23 16:37] LABS: ANION GAP 11 mmol/L (8-16); CALCIUM, TOTAL 8.6 mg/dL (8.8-10.5); CARBON DIOXIDE 25 mmol/L (22-29); CHLORIDE 105 mmol/L (98-107); CREATININE 0.86 mg/dL (0.60-1.30); GLOMERULAR FILTR. RATE CALC > 60 mL/min (>60); GLUCOSE,RANDOM 109 mg/dL (70-110); POTASSIUM 3.9 mmol/L (3.5-5.1); SODIUM SERUM 141 mmol/L (136-145); UREA NITROGEN, BLOOD 18 mg/dL (7-18)
[2018-10-23 16:43] LABS: ALANINE AMINOTRANSFERASE 22 U/L (12-78); ALBUMIN 3.4 g/dL (3.4-5.0); ALKALINE PHOSPHATASE 64 U/L (46-116); ASPARTATE AMINOTRANSFERASE 23 U/L (15-37); BILIRUBIN,TOTAL 0.7 mg/dL (0.1-1.0); TOTAL PROTEIN, SERUM 6.4 g/dL (6.4-8.2)
[2018-10-23 16:44] LABS: ACETAMINOPHEN < 2 mcg/mL (10-30)
[2018-10-23] MEDS ORDERED: ZOLPIDEM TARTRATE 10 MG TABLET PO PRN (18:00)
[2018-10-23] MEDS ORDERED: HALOPERIDOL 5 MG TABLET PO PRN (18:00)
[2018-10-23 21:54] VITALS: BP 104/60
[2018-10-23] MEDS ORDERED: IBUPROFEN 400 MG TABLET PO PRN (22:00)
[2018-10-23] MEDS ORDERED: DOCUSATE SODIUM 100 MG CAPSULE PO PRN (22:00)
[2018-10-23] MEDS ORDERED: NICOTINE 14 MG/24 HOUR PATCH TD PRN (22:00)
[2018-10-23] MEDS ORDERED: CloNIDine HCL 0.1 MG TABLET PO PRN (22:00)
[2018-10-23] MEDS ORDERED: ACETAMINOPHEN 325 MG TABLET PO PRN (22:00)
[2018-10-23] MEDS ORDERED: PETROLATUM,WHITE 28 GM JELLY TP PRN (22:00)
[2018-10-23] MEDS ORDERED: MAGNESIUM HYDROXIDE SUSPENSION 30 ML UDCUP PO PRN (22:00)
[2018-10-23] MEDS ORDERED: ONDANSETRON HCL 4 MG TABLET PO PRN (22:00)
[2018-10-23] MEDS ORDERED: ALBUTEROL SULFATE HFA 90 MCG/PUFF 8 GM INHALER IH PRN (22:00)
[2018-10-23] MEDS ORDERED: LOPERAMIDE HCL 2 MG CAPSULE PO PRN (22:00)
[2018-10-23] MEDS ORDERED: GuaiFENesin/D-METHORPHAN [SUGAR-FREE] 200-20MG/10 ML SYRUP UDCUP PO PRN (22:00)
[2018-10-23] MEDS ORDERED: MAG HYDROX/AL HYDROX/SIMETH ES 30 ML SUSPENSION UDCUP PO PRN (22:00)
[2018-10-23] MEDS ORDERED: PNEUMOCOCCAL VACCINE POLYVALENT 0.5 ML VIAL [PPSV23] IM ONE (22:45)
[2018-10-24 08:14] VITALS: BP 101/61
[2018-10-24 16:38] VITALS: BP 121/78
[2018-10-24] MEDS: ZIPRASIDONE HCL 80 MG CAPSULE PO SCH (18:00)
[2018-10-24] MEDS: LITHIUM CARBONATE 600 MG CAPSULE PO SCH (18:01)
[2018-10-24] MEDS: BusPIRone HCL 10 MG TABLET PO SCH (18:01)
[2018-10-25] MEDS: ZIPRASIDONE HCL 80 MG CAPSULE PO SCH ×2 (07:02→17:56)
[2018-10-25 08:00] VITALS: BP 108/58
[2018-10-25] MEDS: BusPIRone HCL 10 MG TABLET PO SCH ×2 (08:32→17:55)
[2018-10-25] MEDS: LITHIUM CARBONATE 600 MG CAPSULE PO SCH ×2 (08:32→17:55)
[2018-10-25 16:05] VITALS: BP 105/68
[2018-10-26] MEDS: ZIPRASIDONE HCL 80 MG CAPSULE PO SCH ×2 (07:03→17:05)
[2018-10-26 08:00] VITALS: BP 111/52
[2018-10-26] MEDS: BusPIRone HCL 10 MG TABLET PO SCH ×2 (10:38→17:04)
[2018-10-26] MEDS: LITHIUM CARBONATE 600 MG CAPSULE PO SCH ×2 (10:38→17:05)
[2018-10-26 21:13] VITALS: BP 128/61
[2018-10-27] MEDS: ZIPRASIDONE HCL 80 MG CAPSULE PO SCH ×5 (07:02→19:00)
[2018-10-27 08:55] VITALS: BP 118/56
[2018-10-27] MEDS: LITHIUM CARBONATE 600 MG CAPSULE PO SCH ×5 (10:34→19:00)
[2018-10-27] MEDS: BusPIRone HCL 10 MG TABLET PO SCH ×5 (10:34→19:00)
[2018-10-27 18:51] VITALS: BP 121/86
[2018-10-28] MEDS: ZIPRASIDONE HCL 80 MG CAPSULE PO SCH ×2 (06:55→20:49)
[2018-10-28 08:18] VITALS: BP 116/52
[2018-10-28] MEDS: LITHIUM CARBONATE 600 MG CAPSULE PO SCH ×2 (09:10→20:50)
[2018-10-28] MEDS: BusPIRone HCL 10 MG TABLET PO SCH ×2 (09:10→20:50)
[2018-10-28 17:07] VITALS: BP 126/69
[2018-10-28] MEDS: LORazepam 2 MG TABLET PO PRN (18:55)
[2018-10-29] MEDS: ZIPRASIDONE HCL 80 MG CAPSULE PO SCH ×2 (06:41→16:24)
[2018-10-29 08:00] VITALS: BP 111/54
[2018-10-29] MEDS: LITHIUM CARBONATE 600 MG CAPSULE PO SCH ×2 (08:07→16:24)
[2018-10-29] MEDS: BusPIRone HCL 10 MG TABLET PO SCH ×2 (08:07→16:24)
[2018-10-29] MEDS: LORazepam 2 MG TABLET PO PRN (16:24)
[2018-10-29 16:34] VITALS: BP 130/80
[2018-10-30] MEDS: ZIPRASIDONE HCL 80 MG CAPSULE PO SCH ×2 (07:03→21:04)
[2018-10-30 09:03] VITALS: BP 109/71
[2018-10-30] MEDS: LITHIUM CARBONATE 600 MG CAPSULE PO SCH ×2 (09:40→21:04)
[2018-10-30] MEDS: BusPIRone HCL 10 MG TABLET PO SCH ×2 (09:40→21:05)
[2018-10-30] MEDS: LORazepam 2 MG TABLET PO PRN ×2 (15:07→19:57)
[2018-10-30 18:38] VITALS: BP 140/78
[2018-10-31 00:16] VITALS: BP 132/87
[2018-10-31] MEDS: LORazepam 2 MG TABLET PO PRN (00:17)
[2018-10-31] MEDS: ZIPRASIDONE HCL 80 MG CAPSULE PO SCH (07:09)
[2018-10-31] MEDS: BusPIRone HCL 10 MG TABLET PO SCH (07:56)
[2018-10-31] MEDS: LITHIUM CARBONATE 600 MG CAPSULE PO SCH (07:56)
[2018-10-31 08:00] VITALS: BP 137/75
[2018-10-31] MEDS ORDERED: BUSP10TA23 PO (08:40)
[2018-10-31] MEDS ORDERED: ZIPR80CA2 PO (08:40)
[2018-10-31] MEDS ORDERED: LITH600 PO (08:40)
== END 2018-10-31 15:01 | disposition home or self-care (01) | DRG 750 ==
LOC: EMS 12:09 → 3EC 20:30
DX: F25.0 Schizoaffective disorder, bipolar type (principal); F17.210 Nicotine dependence, cigarettes, uncomplicated; F60.0 Paranoid personality disorder; F64.9 Gender identity disorder, unspecified; F41.9 Anxiety disorder, unspecified; G44.209 Tension-type headache, unspecified, not intractable; G47.00 Insomnia, unspecified; T50.902A Poisoning by unspecified drugs, medicaments and biological substances, intentional self-harm, initial encounter; R10.13 Epigastric pain; Z79.899 Other long term (current) drug therapy; Z91.5 Personal history of self-harm
CPT/HCPCS: 87081; 93005; 96360; G0480; G0481; J7030

== ENCOUNTER 2020-02-01 22:17 | Emergency (ER) | payer MEDICAID, OTHER ==
[~2020-02-01] VITALS: Ht 180.3 cm; Wt 72.7 kg
[~2020-02-01 22:17] MED LIST changes: -TEST200V27 IM
[2020-02-01 22:26] VITALS: BP 84/46
== END 2020-02-02 00:24 | disposition left against medical advice (07) ==
LOC: EMS 22:19
DX: R06.02 Shortness of breath (principal); Z53.21 Procedure and treatment not carried out due to patient leaving prior to being seen by health care provider

== ENCOUNTER 2020-06-22 16:42 | Emergency (ER) | payer OTHER ==
[~2020-06-22] VITALS: Ht 175.3 cm; Wt 77.3 kg
[2020-06-22] MEDS ORDERED: LEVE500T53 PO (18:21)
[2020-06-22] MEDS ORDERED: DIVA-80 PO (18:22)
[2020-06-22] MEDS ORDERED: AMOX500C2 PO (18:22)
[2020-06-22 18:43] LABS: BASOPHILS % (AUTO) 0.4 % (0.0-2.0); EOSINOPHILS % (AUTO) 4.4 % (1.0-6.0); HEMATOCRIT 40.2 % (36-46); HEMOGLOBIN 13.6 g/dL (12.0-16.0); LYMPHOCYTES % (AUTO) 31.7 % (22.0-44.0); MEAN CORPUSCULAR HEMOGLOBIN 30.3 pg (26.0-34.0); MEAN CORPUSCULAR VOLUME 89 fL (80-100); MONOCYTES # (AUTO) 0.9 K/uL (0.1-1.0); MONOCYTES % (AUTO) 9.9 % (2.0-9.0); NEUTROPHILS % (AUTO) 53.6 % (40.0-70.0); PLATELET COUNT (AUTO) 194 K/uL (150-450); RED CELL DISTRIBUTION WIDTH 12.6 % (11.5-14.5)
[2020-06-22] MEDS ORDERED: PERTUSS(ACELL),DIPH,TET VAC/PF 0.5 ML VIAL IM ONE (18:45)
[2020-06-22] MEDS ORDERED: BACITRACIN 0.9 GM PACKET OINTMENT TP ONE (18:45)
[2020-06-22] MEDS ORDERED: LevETIRAcetam 1,000 MG in DEXTROSE 5%-WATER 100 ML IV ONE (18:45)
[2020-06-22] MEDS ORDERED: DIVA-112 PO (18:45)
[2020-06-22 19:11] LABS: CALCIUM, TOTAL 8.3 mg/dL (8.8-10.5); CREATININE 1.08 mg/dL (0.60-1.30); POTASSIUM 3.5 mmol/L (3.5-5.1)
[2020-06-22 19:16] LABS: ALBUMIN 3.5 g/dL (3.4-5.0); BILIRUBIN,TOTAL 0.3 mg/dL (0.1-1.0); TOTAL PROTEIN, SERUM 7.2 g/dL (6.4-8.2)
[2020-06-22] MEDS ORDERED: VALPROATE SODIUM 500 MG in DEXTROSE 5%-WATER 50 ML IV ONE (20:15)
[2020-06-22] MEDS ORDERED: DIVALPROEX SODIUM 500 MG ER TABLET PO ONE (21:00)
[2020-06-22 21:30] VITALS: BP 126/70
== END 2020-06-22 22:21 | disposition home or self-care (01) ==
LOC: EMS 16:42
DX: S01.512A Laceration without foreign body of oral cavity, initial encounter (principal); S90.812A Abrasion, left foot, initial encounter; G40.909 Epilepsy, unspecified, not intractable, without status epilepticus; F17.210 Nicotine dependence, cigarettes, uncomplicated; Z87.820 Personal history of traumatic brain injury; W19.XXXA Unspecified fall, initial encounter; Y93.89 Activity, other specified; Y92.89 Other specified places as the place of occurrence of the external cause; Y99.8 Other external cause status
CPT/HCPCS: 36415; 70450; 80053; 80164; 84702; 85025; 96374; 99284; J0712; J3490; J7060 ×2; 90715

== ENCOUNTER 2021-05-20 08:14 | Emergency (ER) | payer OTHER ==
[~2021-05-20] VITALS: Ht 177.8 cm; Wt 104.5 kg
[~2021-05-20 08:14] MED LIST changes: +AMOX500C2 PO; -BUSP10TA23 PO; +DIVA-112 PO; +LEVE500T20 PO; -LITH600 PO; -ZIPR80CA2 PO
[2021-05-20 10:31] VITALS: BP 133/81
[2021-05-21] MEDS ORDERED: BUSP15TA3 PO (11:24)
[2021-05-21] MEDS ORDERED: GABA-1181 PO (11:24)
[2021-05-21] MEDS ORDERED: PARO-37 PO (11:25)
[2021-05-21] MEDS ORDERED: DIVA-112 PO (11:25)
== END 2021-05-20 11:03 | disposition home or self-care (01) ==
LOC: EMS 08:16
DX: R42 Dizziness and giddiness (principal); F20.9 Schizophrenia, unspecified; F17.210 Nicotine dependence, cigarettes, uncomplicated
CPT/HCPCS: 99283; 99284

== ENCOUNTER 2021-05-21 09:56 | Emergency (ER) | payer OTHER ==
[~2021-05-21] VITALS: Ht 165.1 cm; Wt 68.0 kg
[2021-05-21 10:29] VITALS: BP 125/79
[2021-05-21 10:55] LABS: GLUCOMETER DEV NAME(LOC) ERT.5; GLUCOSE,POINT OF CARE 101 MG/DL (70-110)
[2021-05-21] MEDS ORDERED: BUSP15TA3 PO (11:24)
[2021-05-21] MEDS ORDERED: GABA-1181 PO (11:24)
[2021-05-21] MEDS ORDERED: DIVA-112 PO (11:25)
[2021-05-21] MEDS ORDERED: PARO-37 PO (11:25)
[2021-05-21] MEDS ORDERED: VALPROATE SODIUM 1,000 MG in DEXTROSE 5%-WATER 100 ML IV ONE (11:30)
[2021-05-21] MEDS: DIVALPROEX SODIUM 250 MG DR TABLET PO ONE (11:32)
== END 2021-05-21 12:39 | disposition home or self-care (01) ==
LOC: EMS 09:57
DX: G40.909 Epilepsy, unspecified, not intractable, without status epilepticus (principal); F17.210 Nicotine dependence, cigarettes, uncomplicated
CPT/HCPCS: 80164; 82962; 99283; J3490; J7060

== ENCOUNTER 2021-05-24 03:10 | Inpatient (IN) | payer MEDICAID, OTHER ==
[~2021-05-24] VITALS: Ht 167.6 cm; Wt 97.7 kg
[~2021-05-24 03:10] MED LIST changes: -AMOX500C2 PO; +BUSP15TA3 PO; +GABA-1181 PO; +PARO-37 PO
[2021-05-24 04:12] LABS: COVID AG,FIA SOURCE NASOPHARYNGEAL
[2021-05-24] MEDS ORDERED: LORazepam 2 MG TABLET PO ONE (04:15)
[2021-05-24] MEDS ORDERED: LevETIRAcetam 500 MG TABLET PO ONE (04:15)
[2021-05-24] MEDS ORDERED: DIVALPROEX SODIUM 500 MG ER TABLET PO ONE (04:15)
[2021-05-24] MEDS ORDERED: ZOLPIDEM TARTRATE 10 MG TABLET PO PRN (04:30)
[2021-05-24] MEDS ORDERED: DiphenhydrAMINE HCL 50 MG/ML VIAL IM ONE (07:30)
[2021-05-24] MEDS ORDERED: LORazepam 2 MG/ML VIAL IM ONE (07:30)
[2021-05-24] MEDS ORDERED: HALOPERIDOL LACTATE 5 MG/ML VIAL IM ONE (07:30)
[2021-05-24 21:14] VITALS: BP 129/72
[2021-05-24] MEDS ORDERED: INFLUENZA VIRUS VACCINE QVS 2021-22 (6MO+)/PF 60 MCG/0.5 ML SYRINGE IM. ONE (21:30)
[2021-05-25] MEDS: HALOPERIDOL 5 MG TABLET PO PRN (08:38)
[2021-05-25] MEDS: DIVALPROEX SODIUM 500 MG DR TABLET PO SCH ×2 (08:38→16:50)
[2021-05-25] MEDS: LORazepam 2 MG TABLET PO PRN (08:38)
[2021-05-25] MEDS ORDERED: ACETAMINOPHEN 325 MG TABLET PO PRN (09:00)
[2021-05-25] MEDS ORDERED: LOPERAMIDE HCL 2 MG CAPSULE PO PRN (09:00)
[2021-05-25] MEDS ORDERED: ONDANSETRON HCL 4 MG TABLET PO PRN (09:00)
[2021-05-25] MEDS ORDERED: IBUPROFEN 400 MG TABLET PO PRN (09:00)
[2021-05-25] MEDS ORDERED: PETROLATUM,WHITE 28 GM JELLY TP PRN (09:00)
[2021-05-25] MEDS ORDERED: GuaiFENesin/D-METHORPHAN [SUGAR-FREE] 200-20MG/10 ML SYRUP UDCUP PO PRN (09:00)
[2021-05-25] MEDS ORDERED: ALBUTEROL SULFATE HFA 90 MCG/PUFF 8 GM INHALER IH PRN (09:00)
[2021-05-25] MEDS ORDERED: NICOTINE 14 MG/24 HOUR PATCH TD PRN (09:00)
[2021-05-25] MEDS ORDERED: DOCUSATE SODIUM 100 MG CAPSULE PO PRN (09:00)
[2021-05-25] MEDS ORDERED: MAG HYDROX/AL HYDROX/SIMETH ES 30 ML SUSPENSION UDCUP PO PRN (09:00)
[2021-05-25] MEDS ORDERED: CloNIDine HCL 0.1 MG TABLET PO PRN (09:00)
[2021-05-25] MEDS ORDERED: MAGNESIUM HYDROXIDE SUSPENSION 30 ML UDCUP PO PRN (09:00)
[2021-05-25] MEDS: PARoxetine HCL 20 MG TABLET PO SCH (09:38)
[2021-05-25] MEDS: BusPIRone HCL 15 MG TABLET PO SCH ×2 (09:39→16:50)
[2021-05-25] MEDS: NICOTINE POLACRILEX 2 MG LOZENGE PO PRN ×2 (10:53→16:57)
[2021-05-25] MEDS: GABAPENTIN 300 MG CAPSULE PO SCH ×2 (13:52→16:50)
[2021-05-25 16:00] VITALS: BP 145/93
[2021-05-26 08:20] VITALS: BP 139/80
[2021-05-26] MEDS: BusPIRone HCL 15 MG TABLET PO SCH ×2 (08:37→16:51)
[2021-05-26] MEDS: LORazepam 2 MG TABLET PO PRN ×2 (08:37→16:52)
[2021-05-26] MEDS: GABAPENTIN 300 MG CAPSULE PO SCH ×3 (08:37→16:51)
[2021-05-26] MEDS: HALOPERIDOL 5 MG TABLET PO PRN ×2 (08:37→16:52)
[2021-05-26] MEDS: NICOTINE POLACRILEX 2 MG LOZENGE PO PRN ×2 (08:37→14:37)
[2021-05-26] MEDS: PARoxetine HCL 20 MG TABLET PO SCH (08:37)
[2021-05-26] MEDS: DIVALPROEX SODIUM 500 MG DR TABLET PO SCH ×2 (08:37→16:52)
[2021-05-27] VITALS (8 sets, daily range): BP systolic 113–139; BP diastolic 65–83
[2021-05-27] MEDS: NICOTINE POLACRILEX 2 MG LOZENGE PO PRN ×2 (08:15→14:21)
[2021-05-27] MEDS: GABAPENTIN 300 MG CAPSULE PO SCH ×3 (08:16→16:40)
[2021-05-27] MEDS: BusPIRone HCL 15 MG TABLET PO SCH ×2 (08:16→16:40)
[2021-05-27] MEDS: LORazepam 2 MG TABLET PO PRN ×2 (08:16→16:41)
[2021-05-27] MEDS: DIVALPROEX SODIUM 500 MG DR TABLET PO SCH ×2 (08:16→16:40)
[2021-05-27] MEDS: PARoxetine HCL 20 MG TABLET PO SCH (08:17)
[2021-05-27] MEDS: HALOPERIDOL 5 MG TABLET PO PRN (08:18)
[2021-05-28] MEDS: GABAPENTIN 300 MG CAPSULE PO SCH ×3 (08:01→16:47)
[2021-05-28] MEDS: BusPIRone HCL 15 MG TABLET PO SCH ×2 (08:01→16:48)
[2021-05-28] MEDS: HALOPERIDOL 5 MG TABLET PO PRN ×2 (08:02→16:48)
[2021-05-28] MEDS: PARoxetine HCL 20 MG TABLET PO SCH (08:02)
[2021-05-28] MEDS: NICOTINE POLACRILEX 2 MG LOZENGE PO PRN ×2 (08:02→14:24)
[2021-05-28] MEDS: DIVALPROEX SODIUM 500 MG DR TABLET PO SCH ×2 (08:02→16:47)
[2021-05-28 08:47] VITALS: BP 142/93
[2021-05-28] MEDS: LORazepam 2 MG TABLET PO PRN (16:48)
[2021-05-29 08:00] VITALS: BP 149/105
[2021-05-29] MEDS: GABAPENTIN 300 MG CAPSULE PO SCH ×3 (08:23→17:29)
[2021-05-29] MEDS: PARoxetine HCL 20 MG TABLET PO SCH (08:23)
[2021-05-29] MEDS: DIVALPROEX SODIUM 500 MG DR TABLET PO SCH ×2 (08:23→17:29)
[2021-05-29] MEDS: LORazepam 2 MG TABLET PO PRN (08:23)
[2021-05-29] MEDS: HALOPERIDOL 5 MG TABLET PO PRN (08:23)
[2021-05-29] MEDS: BusPIRone HCL 15 MG TABLET PO SCH ×2 (08:23→17:29)
[2021-05-29] MEDS: NICOTINE POLACRILEX 2 MG LOZENGE PO PRN (08:37)
[2021-05-29 09:23] VITALS: BP 149/105
[2021-05-29 17:46] VITALS: BP 95/64
[2021-05-30 07:54] LABS: COVID AG,FIA SOURCE NASAL SWAB
[2021-05-30 08:00] VITALS: BP 140/93
[2021-05-30] MEDS: BusPIRone HCL 15 MG TABLET PO SCH ×2 (08:27→16:33)
[2021-05-30] MEDS: DIVALPROEX SODIUM 500 MG DR TABLET PO SCH ×2 (08:27→16:33)
[2021-05-30] MEDS: PARoxetine HCL 20 MG TABLET PO SCH (08:27)
[2021-05-30] MEDS: GABAPENTIN 300 MG CAPSULE PO SCH ×3 (08:27→16:33)
[2021-05-30] MEDS: NICOTINE POLACRILEX 2 MG LOZENGE PO PRN (11:04)
[2021-05-30 18:45] VITALS: BP 140/70
[2021-05-31] MEDS: BusPIRone HCL 15 MG TABLET PO SCH ×2 (07:54→16:24)
[2021-05-31] MEDS: GABAPENTIN 300 MG CAPSULE PO SCH ×3 (07:54→16:24)
[2021-05-31] MEDS: PARoxetine HCL 20 MG TABLET PO SCH (07:54)
[2021-05-31] MEDS: DIVALPROEX SODIUM 500 MG DR TABLET PO SCH ×2 (07:54→16:24)
[2021-05-31] MEDS: HALOPERIDOL 5 MG TABLET PO PRN ×2 (07:54→16:24)
[2021-05-31] MEDS: NICOTINE POLACRILEX 2 MG LOZENGE PO PRN ×3 (07:57→18:43)
[2021-05-31 08:40] VITALS: BP 109/54
[2021-05-31 16:03] VITALS: BP 133/94
[2021-05-31] MEDS: LORazepam 2 MG TABLET PO PRN (16:24)
[2021-06-01] MEDS: NICOTINE POLACRILEX 2 MG LOZENGE PO PRN ×2 (07:22→13:36)
[2021-06-01] MEDS: BusPIRone HCL 15 MG TABLET PO SCH ×2 (08:12→16:16)
[2021-06-01] MEDS: DIVALPROEX SODIUM 500 MG DR TABLET PO SCH ×2 (08:12→16:17)
[2021-06-01] MEDS: GABAPENTIN 300 MG CAPSULE PO SCH ×3 (08:12→16:16)
[2021-06-01] MEDS: PARoxetine HCL 20 MG TABLET PO SCH (08:12)
[2021-06-01] MEDS: HALOPERIDOL 5 MG TABLET PO PRN (08:12)
[2021-06-01 10:59] VITALS: BP 133/99
[2021-06-01 16:37] VITALS: BP 114/60
[2021-06-02] MEDS: NICOTINE POLACRILEX 2 MG LOZENGE PO PRN ×2 (09:09→16:25)
[2021-06-02] MEDS: BusPIRone HCL 15 MG TABLET PO SCH ×2 (09:11→16:01)
[2021-06-02] MEDS: PARoxetine HCL 20 MG TABLET PO SCH (09:11)
[2021-06-02] MEDS: GABAPENTIN 300 MG CAPSULE PO SCH ×3 (09:11→16:02)
[2021-06-02] MEDS: DIVALPROEX SODIUM 500 MG DR TABLET PO SCH ×2 (09:11→16:02)
[2021-06-02] MEDS: HALOPERIDOL 5 MG TABLET PO PRN ×2 (09:12→16:02)
[2021-06-02 16:01] VITALS: BP 159/91
[2021-06-02] MEDS: LORazepam 2 MG TABLET PO PRN (16:02)
[2021-06-02 16:50] VITALS: BP 159/91
[2021-06-03] MEDS: GABAPENTIN 300 MG CAPSULE PO SCH ×3 (07:44→16:23)
[2021-06-03] MEDS: DIVALPROEX SODIUM 500 MG DR TABLET PO SCH ×2 (07:44→16:23)
[2021-06-03] MEDS: PARoxetine HCL 20 MG TABLET PO SCH (07:44)
[2021-06-03] MEDS: BusPIRone HCL 15 MG TABLET PO SCH ×2 (07:44→16:23)
[2021-06-03 08:22] VITALS: BP 140/63
[2021-06-03] MEDS: NICOTINE POLACRILEX 2 MG LOZENGE PO PRN ×2 (09:41→20:17)
[2021-06-03 16:20] VITALS: BP 128/81
[2021-06-03] MEDS: LORazepam 2 MG TABLET PO PRN (16:23)
[2021-06-03] MEDS: HALOPERIDOL 5 MG TABLET PO PRN (16:23)
[2021-06-04 08:16] VITALS: BP 121/95
[2021-06-04] MEDS: NICOTINE POLACRILEX 2 MG LOZENGE PO PRN ×2 (08:30→14:49)
[2021-06-04] MEDS: HALOPERIDOL 5 MG TABLET PO PRN ×2 (08:34→19:37)
[2021-06-04] MEDS: GABAPENTIN 300 MG CAPSULE PO SCH ×3 (08:34→16:16)
[2021-06-04] MEDS: BusPIRone HCL 15 MG TABLET PO SCH ×2 (08:34→16:16)
[2021-06-04] MEDS: PARoxetine HCL 20 MG TABLET PO SCH (08:34)
[2021-06-04] MEDS: DIVALPROEX SODIUM 500 MG DR TABLET PO SCH ×2 (08:34→16:16)
[2021-06-04 09:38] LABS: APPEARANCE,URINE CLEAR (CLEAR); BILIRUBIN,URINE NEGATIVE (NEGATIVE); GLUCOSE, URINE (UA) NEGATIVE (NEGATIVE); KETONES,URINE 15 mg/dL (NEGATIVE); LEUKOCYTE ESTERASE ,URINE NEGATIVE (NEGATIVE); NITRATE,URINE NEGATIVE (NEGATIVE); PH,URINE 6.5 (5.0-8.0); PROTEIN,URINE NEGATIVE (NEGATIVE); UROBILINOGEN,URINE 0.2 mg/dL (<=1.0)
[2021-06-04 09:49] LABS: OCCULT BLOOD,URINE LARGE (NEGATIVE)
[2021-06-04 09:50] LABS: BACTERIA,URINE None Seen /HPF (None Seen); SQUAMOUS EPITHELIAL CELL,UR Few /LPF (None Seen); WBC,URINE None Seen /HPF (0-5)
[2021-06-04 16:18] VITALS: BP 119/74
[2021-06-04] MEDS: LORazepam 2 MG TABLET PO PRN (19:37)
[2021-06-05] MEDS: NICOTINE POLACRILEX 2 MG LOZENGE PO PRN ×3 (05:23→18:49)
[2021-06-05] MEDS: PARoxetine HCL 20 MG TABLET PO SCH (09:26)
[2021-06-05] MEDS: HALOPERIDOL 5 MG TABLET PO PRN (09:27)
[2021-06-05] MEDS: BusPIRone HCL 15 MG TABLET PO SCH ×2 (09:27→17:35)
[2021-06-05] MEDS: DIVALPROEX SODIUM 500 MG DR TABLET PO SCH ×2 (09:27→17:35)
[2021-06-05] MEDS: GABAPENTIN 300 MG CAPSULE PO SCH ×3 (09:27→17:35)
[2021-06-05 09:29] VITALS: BP 139/77
[2021-06-05 16:22] VITALS: BP 123/82
[2021-06-06 07:57] LABS: COVID AG,FIA SOURCE NASAL SWAB
[2021-06-06] MEDS: PARoxetine HCL 20 MG TABLET PO SCH (08:10)
[2021-06-06] MEDS: HALOPERIDOL 5 MG TABLET PO PRN ×2 (08:11→18:50)
[2021-06-06] MEDS: DIVALPROEX SODIUM 500 MG DR TABLET PO SCH ×2 (08:11→16:30)
[2021-06-06] MEDS: GABAPENTIN 300 MG CAPSULE PO SCH ×3 (08:11→16:29)
[2021-06-06] MEDS: BusPIRone HCL 15 MG TABLET PO SCH ×2 (08:11→16:29)
[2021-06-06] MEDS: NICOTINE POLACRILEX 2 MG LOZENGE PO PRN ×2 (08:13→14:15)
[2021-06-06 09:13] VITALS: BP 129/80
[2021-06-07] MEDS: NICOTINE POLACRILEX 2 MG LOZENGE PO PRN ×3 (07:56→17:41)
[2021-06-07] MEDS: BusPIRone HCL 15 MG TABLET PO SCH ×2 (07:57→17:41)
[2021-06-07] MEDS: GABAPENTIN 300 MG CAPSULE PO SCH ×3 (07:57→17:41)
[2021-06-07] MEDS: PARoxetine HCL 20 MG TABLET PO SCH (07:57)
[2021-06-07] MEDS: DIVALPROEX SODIUM 500 MG DR TABLET PO SCH ×2 (07:57→17:41)
[2021-06-07] MEDS: LORazepam 2 MG TABLET PO PRN ×2 (08:02→18:02)
[2021-06-07 08:38] VITALS: BP 140/93
[2021-06-07 16:09] VITALS: BP 147/94
[2021-06-07] MEDS: HALOPERIDOL 5 MG TABLET PO PRN (18:02)
[2021-06-08] MEDS: PARoxetine HCL 20 MG TABLET PO SCH (08:13)
[2021-06-08] MEDS: GABAPENTIN 300 MG CAPSULE PO SCH ×3 (08:14→16:32)
[2021-06-08] MEDS: BusPIRone HCL 15 MG TABLET PO SCH ×2 (08:14→16:32)
[2021-06-08] MEDS: DIVALPROEX SODIUM 500 MG DR TABLET PO SCH ×2 (08:14→16:32)
[2021-06-08] MEDS: LevETIRAcetam 500 MG TABLET PO SCH ×2 (08:14→16:32)
[2021-06-08] MEDS: NICOTINE POLACRILEX 2 MG LOZENGE PO PRN ×2 (08:20→16:35)
[2021-06-09] MEDS: DIVALPROEX SODIUM 500 MG DR TABLET PO SCH ×2 (07:56→16:30)
[2021-06-09] MEDS: GABAPENTIN 300 MG CAPSULE PO SCH ×3 (07:56→16:30)
[2021-06-09] MEDS: LevETIRAcetam 500 MG TABLET PO SCH ×2 (07:56→16:30)
[2021-06-09] MEDS: BusPIRone HCL 15 MG TABLET PO SCH ×2 (07:56→16:30)
[2021-06-09] MEDS: PARoxetine HCL 20 MG TABLET PO SCH (07:56)
[2021-06-09] MEDS: NICOTINE POLACRILEX 2 MG LOZENGE PO PRN (07:59)
[2021-06-09 08:30] VITALS: BP 119/78
[2021-06-09 16:33] VITALS: BP 135/85
[2021-06-09] MEDS: HALOPERIDOL 5 MG TABLET PO PRN (16:54)
[2021-06-09] MEDS: LORazepam 2 MG TABLET PO PRN (16:54)
[2021-06-10] MEDS: GABAPENTIN 300 MG CAPSULE PO SCH ×2 (09:09→12:32)
[2021-06-10] MEDS: BusPIRone HCL 15 MG TABLET PO SCH (09:10)
[2021-06-10] MEDS: DIVALPROEX SODIUM 500 MG DR TABLET PO SCH (09:10)
[2021-06-10] MEDS: LevETIRAcetam 500 MG TABLET PO SCH (09:10)
[2021-06-10] MEDS: PARoxetine HCL 20 MG TABLET PO SCH (09:10)
[2021-06-10] MEDS: NICOTINE POLACRILEX 2 MG LOZENGE PO PRN (09:11)
[2021-06-10 10:04] VITALS: BP 120/64
[2021-06-10] MEDS ORDERED: DIVA-112 PO (11:15)
[2021-06-10] MEDS ORDERED: LEVE500T20 PO (11:16)
== END 2021-06-10 12:30 | disposition home or self-care (01) | DRG 750 ==
LOC: EMS 03:12 → 3EC 20:10
PROVIDERS: ADMIT Psychiatry & Neurology Child & Adolescent Psychiatry; ATTEND Psychiatry & Neurology Child & Adolescent Psychiatry
DX: F25.1 Schizoaffective disorder, depressive type (principal); T71.162A Asphyxiation due to hanging, intentional self-harm, initial encounter; G40.909 Epilepsy, unspecified, not intractable, without status epilepticus; F17.210 Nicotine dependence, cigarettes, uncomplicated; F64.9 Gender identity disorder, unspecified; F10.10 Alcohol abuse, uncomplicated; Z20.822 Contact with and (suspected) exposure to COVID-19; K21.9 Gastro-esophageal reflux disease without esophagitis; Z59.00 Homelessness unspecified; Z87.820 Personal history of traumatic brain injury
CPT/HCPCS: 81001; 99285; J1200; J1630; J2060; Q9967

== ENCOUNTER 2021-06-14 21:47 | Emergency (ER) | payer MEDICAID, OTHER ==
[~2021-06-14] VITALS: Ht 177.8 cm; Wt 81.8 kg
[2021-06-15 00:01] LABS: COVID AG,FIA SOURCE NASOPHARYNGEAL
[2021-06-15 01:02] VITALS: BP 118/66
[2021-06-15 01:41] LABS: APPEARANCE,URINE CLEAR (CLEAR); BILIRUBIN,URINE NEGATIVE (NEGATIVE); GLUCOSE, URINE (UA) NEGATIVE (NEGATIVE); KETONES,URINE NEGATIVE (NEGATIVE); LEUKOCYTE ESTERASE ,URINE NEGATIVE (NEGATIVE); NITRATE,URINE NEGATIVE (NEGATIVE); OCCULT BLOOD,URINE TRACE (NEGATIVE); PROTEIN,URINE TRACE (NEGATIVE); UROBILINOGEN,URINE 0.2 mg/dL (<=1.0)
[2021-06-15 01:46] LABS: AMPHET/METH SCREEN,URINE NEGATIVE (NEGATIVE); BARBITURATE SCREEN, URINE NEGATIVE (NEGATIVE); BENZODIAZEPINES SCREEN,URINE NEGATIVE (NEGATIVE); CANNABINOID SCREEN,URINE NEGATIVE (NEGATIVE); COCAINE SCREEN,URINE NEGATIVE (NEGATIVE); METHADONE SCREEN, URINE NEGATIVE (NEGATIVE); OPIATE SCREEN,URINE NEGATIVE (NEGATIVE)
[2021-06-15 01:48] LABS: BACTERIA,URINE Rare /HPF (None Seen); SQUAMOUS EPITHELIAL CELL,UR Moderate /LPF (None Seen)
[2021-06-15 01:50] LABS: PHENCYCLIDINE SCREEN,URINE NEGATIVE (NEGATIVE)
== END 2021-06-15 05:43 | disposition home or self-care (01) ==
LOC: EMS 22:04
DX: G40.909 Epilepsy, unspecified, not intractable, without status epilepticus (principal); R00.2 Palpitations; F20.9 Schizophrenia, unspecified; F17.210 Nicotine dependence, cigarettes, uncomplicated; Z20.822 Contact with and (suspected) exposure to COVID-19
CPT/HCPCS: 81001; 93005; 99284

== ENCOUNTER 2021-07-19 15:17 | Emergency (ER) | payer OTHER ==
[~2021-07-19] VITALS: Ht 177.8 cm; Wt 72.0 kg
[2021-07-19 16:14] VITALS: BP 140/79
== END 2021-07-19 20:07 | disposition left against medical advice (07) ==
LOC: EDUNIT# 15:17 → EMS 15:25
DX: F25.0 Schizoaffective disorder, bipolar type (principal); F17.210 Nicotine dependence, cigarettes, uncomplicated; F32.9 Major depressive disorder, single episode, unspecified
CPT/HCPCS: 93005; 99283

== ENCOUNTER 2021-07-20 05:02 | Inpatient (IN) | payer MEDICAID, OTHER ==
[~2021-07-20] VITALS: Ht 177.8 cm; Wt 44.9 kg
[2021-07-20] MEDS ORDERED: LevETIRAcetam 500 MG TABLET PO ONE (06:15)
[2021-07-20 06:31] LABS: COVID AG,FIA SOURCE NASOPHARYNGEAL
[2021-07-20 06:34] LABS: BASOPHILS % (AUTO) 0.4 % (0.0-2.0); EOSINOPHILS % (AUTO) 0.6 % (1.0-6.0); HEMATOCRIT 39.9 % (36-46); HEMOGLOBIN 13.8 g/dL (12.0-16.0); LYMPHOCYTES # (AUTO) 1.8 K/uL (1.0-4.8); LYMPHOCYTES % (AUTO) 17.7 % (22.0-44.0); MEAN CORPUSCULAR HEMOGLOBIN 29.9 pg (26.0-34.0); MEAN CORPUSCULAR HGB CONC 34.7 G/dL (31.0-37.0); MEAN CORPUSCULAR VOLUME 86 fL (80-100); MONOCYTES % (AUTO) 9.8 % (2.0-9.0); NEUTROPHILS # (AUTO) 7.2 K/uL (1.8-7.7); NEUTROPHILS % (AUTO) 71.5 % (40.0-70.0); PLATELET COUNT (AUTO) 259 K/uL (150-450); RED BLOOD CELL COUNT(AUTO) 4.63 MIL/uL (4.00-5.20)
[2021-07-20 06:42] LABS: ANION GAP 7 mmol/L (8-16); CALCIUM, TOTAL 9.3 mg/dL (8.8-10.5); CARBON DIOXIDE 28 mmol/L (22-29); CHLORIDE 103 mmol/L (98-107); CREATININE 1.01 mg/dL (0.60-1.30); GLOMERULAR FILTR. RATE CALC > 60 mL/min (>60); GLUCOSE,RANDOM 94 mg/dL (70-110); POTASSIUM 4.4 mmol/L (3.5-5.1); SODIUM SERUM 138 mmol/L (136-145); UREA NITROGEN, BLOOD 13 mg/dL (7-18)
[2021-07-20 06:48] LABS: ALANINE AMINOTRANSFERASE 23 U/L (12-78); ALKALINE PHOSPHATASE 69 U/L (46-116); ASPARTATE AMINOTRANSFERASE 18 U/L (15-37); BILIRUBIN,TOTAL 0.5 mg/dL (0.1-1.0); TOTAL PROTEIN, SERUM 7.6 g/dL (6.4-8.2)
[2021-07-20 06:50] LABS: VALPROIC ACID < 3 mcg/mL (50-100)
[2021-07-20 07:03] LABS: AMPHET/METH SCREEN,URINE POSITIVE (NEGATIVE); BARBITURATE SCREEN, URINE NEGATIVE (NEGATIVE); BENZODIAZEPINES SCREEN,URINE NEGATIVE (NEGATIVE); CANNABINOID SCREEN,URINE POSITIVE (NEGATIVE); COCAINE SCREEN,URINE NEGATIVE (NEGATIVE); METHADONE SCREEN, URINE NEGATIVE (NEGATIVE); OPIATE SCREEN,URINE NEGATIVE (NEGATIVE)
[2021-07-20 07:04] LABS: PHENCYCLIDINE SCREEN,URINE NEGATIVE (NEGATIVE)
[2021-07-20] MEDS ORDERED: NICOTINE 21 MG/24 HOUR PATCH TD ONE (07:45)
[2021-07-20] MEDS ORDERED: LORazepam 1 MG TABLET PO ONE (08:30)
[2021-07-20] MEDS ORDERED: DiphenhydrAMINE HCL 50 MG/ML VIAL IM ONE (08:45)
[2021-07-20] MEDS ORDERED: LORazepam 2 MG/ML VIAL IM ONE (08:45)
[2021-07-20] MEDS ORDERED: HALOPERIDOL LACTATE 5 MG/ML VIAL IM ONE (08:45)
[2021-07-20] MEDS ORDERED: ZOLPIDEM TARTRATE 10 MG TABLET PO PRN (12:30)
[2021-07-21] MEDS: LORazepam 2 MG TABLET PO PRN (04:36)
[2021-07-21] MEDS: HALOPERIDOL 5 MG TABLET PO PRN (04:36)
[2021-07-21] MEDS ORDERED: GuaiFENesin/D-METHORPHAN [SUGAR-FREE] 200-20MG/10 ML SYRUP UDCUP PO PRN (07:00)
[2021-07-21] MEDS ORDERED: PETROLATUM,WHITE 28 GM JELLY TP PRN (07:00)
[2021-07-21] MEDS ORDERED: CloNIDine HCL 0.1 MG TABLET PO PRN (07:00)
[2021-07-21] MEDS ORDERED: MAG HYDROX/AL HYDROX/SIMETH ES 30 ML SUSPENSION UDCUP PO PRN (07:00)
[2021-07-21] MEDS ORDERED: NICOTINE 14 MG/24 HOUR PATCH TD PRN (07:00)
[2021-07-21] MEDS ORDERED: DOCUSATE SODIUM 100 MG CAPSULE PO PRN (07:00)
[2021-07-21] MEDS ORDERED: ONDANSETRON HCL 4 MG TABLET PO PRN (07:00)
[2021-07-21] MEDS ORDERED: IBUPROFEN 400 MG TABLET PO PRN (07:00)
[2021-07-21] MEDS ORDERED: ALBUTEROL SULFATE HFA 90 MCG/PUFF 8 GM INHALER IH PRN (07:00)
[2021-07-21] MEDS ORDERED: MAGNESIUM HYDROXIDE SUSPENSION 30 ML UDCUP PO PRN (07:00)
[2021-07-21] MEDS ORDERED: ACETAMINOPHEN 325 MG TABLET PO PRN (07:00)
[2021-07-21] MEDS ORDERED: LOPERAMIDE HCL 2 MG CAPSULE PO PRN (07:00)
[2021-07-21 08:00] VITALS: BP 114/71
[2021-07-21] MEDS ORDERED: LevETIRAcetam 500 MG TABLET PO SCH (09:00)
[2021-07-21] MEDS: LevETIRAcetam 500 MG TABLET PO SCH ×2 (09:36→16:11)
[2021-07-21] MEDS: GABAPENTIN 300 MG CAPSULE PO SCH ×2 (12:08→16:11)
[2021-07-21] MEDS: PARoxetine HCL 20 MG TABLET PO SCH (12:08)
[2021-07-21] MEDS: DIVALPROEX SODIUM 500 MG DR TABLET PO SCH ×2 (12:08→16:11)
[2021-07-21] MEDS: NICOTINE POLACRILEX 2 MG LOZENGE PO PRN (15:30)
[2021-07-21] MEDS: BusPIRone HCL 15 MG TABLET PO SCH (16:11)
[2021-07-22] MEDS: NICOTINE POLACRILEX 2 MG LOZENGE PO PRN ×2 (05:44→14:04)
[2021-07-22 08:14] VITALS: BP 109/70
[2021-07-22] MEDS: PARoxetine HCL 20 MG TABLET PO SCH (10:22)
[2021-07-22] MEDS: BusPIRone HCL 15 MG TABLET PO SCH ×2 (10:22→16:14)
[2021-07-22] MEDS: DIVALPROEX SODIUM 500 MG DR TABLET PO SCH ×2 (10:22→16:14)
[2021-07-22] MEDS: GABAPENTIN 300 MG CAPSULE PO SCH ×3 (10:22→16:14)
[2021-07-22] MEDS: LevETIRAcetam 500 MG TABLET PO SCH ×2 (10:22→16:15)
[2021-07-23] MEDS: NICOTINE POLACRILEX 2 MG LOZENGE PO PRN ×2 (05:48→10:24)
[2021-07-23] MEDS: LORazepam 2 MG TABLET PO PRN ×4 (05:52→18:00)
[2021-07-23 05:54] VITALS: BP 159/126
[2021-07-23] MEDS: HALOPERIDOL 5 MG TABLET PO PRN ×2 (08:10→18:00)
[2021-07-23] MEDS: LevETIRAcetam 500 MG TABLET PO SCH ×2 (08:10→16:25)
[2021-07-23] MEDS: DIVALPROEX SODIUM 500 MG DR TABLET PO SCH ×2 (08:10→16:25)
[2021-07-23] MEDS: BusPIRone HCL 15 MG TABLET PO SCH ×2 (08:10→16:25)
[2021-07-23] MEDS: PARoxetine HCL 20 MG TABLET PO SCH (08:10)
[2021-07-23] MEDS: GABAPENTIN 300 MG CAPSULE PO SCH ×3 (08:10→16:25)
[2021-07-23 16:25] VITALS: BP 132/82
[2021-07-24] MEDS: NICOTINE POLACRILEX 2 MG LOZENGE PO PRN ×3 (06:20→17:45)
[2021-07-24] MEDS: LevETIRAcetam 500 MG TABLET PO SCH ×2 (08:30→16:32)
[2021-07-24] MEDS: HALOPERIDOL 5 MG TABLET PO PRN ×2 (08:30→17:30)
[2021-07-24] MEDS: DIVALPROEX SODIUM 500 MG DR TABLET PO SCH ×2 (08:31→16:32)
[2021-07-24] MEDS: GABAPENTIN 300 MG CAPSULE PO SCH ×3 (08:31→16:31)
[2021-07-24] MEDS: LORazepam 2 MG TABLET PO PRN ×2 (08:31→17:30)
[2021-07-24] MEDS: BusPIRone HCL 15 MG TABLET PO SCH ×2 (08:31→16:32)
[2021-07-24] MEDS: PARoxetine HCL 20 MG TABLET PO SCH (08:31)
[2021-07-24 16:00] VITALS: BP 131/76
[2021-07-25] MEDS: HALOPERIDOL 5 MG TABLET PO PRN ×2 (07:44→16:37)
[2021-07-25] MEDS: DIVALPROEX SODIUM 500 MG DR TABLET PO SCH ×2 (07:44→17:00)
[2021-07-25] MEDS: BusPIRone HCL 15 MG TABLET PO SCH ×2 (07:44→16:37)
[2021-07-25] MEDS: GABAPENTIN 300 MG CAPSULE PO SCH ×3 (07:44→16:37)
[2021-07-25] MEDS: LevETIRAcetam 500 MG TABLET PO SCH ×2 (07:44→16:37)
[2021-07-25] MEDS: LORazepam 2 MG TABLET PO PRN ×2 (07:44→16:37)
[2021-07-25] MEDS: NICOTINE POLACRILEX 2 MG LOZENGE PO PRN ×3 (07:44→16:15)
[2021-07-25] MEDS: PARoxetine HCL 20 MG TABLET PO SCH (07:46)
[2021-07-25 16:10] VITALS: BP 132/76
[2021-07-26] MEDS: BusPIRone HCL 15 MG TABLET PO SCH ×2 (07:44→16:30)
[2021-07-26] MEDS: GABAPENTIN 300 MG CAPSULE PO SCH ×3 (07:44→16:30)
[2021-07-26] MEDS: LORazepam 2 MG TABLET PO PRN (07:44)
[2021-07-26] MEDS: DIVALPROEX SODIUM 500 MG DR TABLET PO SCH ×2 (07:45→16:29)
[2021-07-26] MEDS: NICOTINE POLACRILEX 2 MG LOZENGE PO PRN ×2 (07:45→13:34)
[2021-07-26] MEDS: LevETIRAcetam 500 MG TABLET PO SCH ×2 (07:45→16:29)
[2021-07-26] MEDS: PARoxetine HCL 20 MG TABLET PO SCH (07:45)
[2021-07-26] MEDS: HALOPERIDOL 5 MG TABLET PO PRN (07:49)
[2021-07-26 08:43] VITALS: BP 150/103
[2021-07-26 16:48] VITALS: BP 145/69
[2021-07-27] MEDS: NICOTINE POLACRILEX 2 MG LOZENGE PO PRN ×3 (08:19→19:47)
[2021-07-27] MEDS: HALOPERIDOL 5 MG TABLET PO PRN (08:24)
[2021-07-27] MEDS: BusPIRone HCL 15 MG TABLET PO SCH ×2 (08:24→16:40)
[2021-07-27] MEDS: DIVALPROEX SODIUM 500 MG DR TABLET PO SCH ×2 (08:24→16:40)
[2021-07-27] MEDS: PARoxetine HCL 20 MG TABLET PO SCH (08:24)
[2021-07-27] MEDS: GABAPENTIN 300 MG CAPSULE PO SCH ×3 (08:24→16:40)
[2021-07-27] MEDS: LevETIRAcetam 500 MG TABLET PO SCH ×2 (08:24→16:40)
[2021-07-27] MEDS: LORazepam 2 MG TABLET PO PRN (08:24)
[2021-07-27 16:38] VITALS: BP 128/94
[2021-07-28] MEDS: NICOTINE POLACRILEX 2 MG LOZENGE PO PRN ×3 (06:43→15:32)
[2021-07-28] MEDS: BusPIRone HCL 15 MG TABLET PO SCH ×2 (09:55→15:59)
[2021-07-28] MEDS: GABAPENTIN 300 MG CAPSULE PO SCH ×3 (09:55→15:59)
[2021-07-28] MEDS: PARoxetine HCL 20 MG TABLET PO SCH (09:55)
[2021-07-28] MEDS: LevETIRAcetam 500 MG TABLET PO SCH ×2 (09:56→16:00)
[2021-07-28] MEDS: DIVALPROEX SODIUM 500 MG DR TABLET PO SCH ×2 (09:56→16:00)
[2021-07-29] MEDS: NICOTINE POLACRILEX 2 MG LOZENGE PO PRN (06:49)
[2021-07-29] MEDS: HALOPERIDOL 5 MG TABLET PO PRN (08:31)
[2021-07-29] MEDS: LevETIRAcetam 500 MG TABLET PO SCH (08:31)
[2021-07-29] MEDS: LORazepam 2 MG TABLET PO PRN (08:32)
[2021-07-29] MEDS: PARoxetine HCL 20 MG TABLET PO SCH (08:32)
[2021-07-29] MEDS: DIVALPROEX SODIUM 500 MG DR TABLET PO SCH (08:32)
[2021-07-29] MEDS: GABAPENTIN 300 MG CAPSULE PO SCH (08:32)
[2021-07-29] MEDS: BusPIRone HCL 15 MG TABLET PO SCH (08:32)
== END 2021-07-29 12:15 | disposition home or self-care (01) | DRG 750 ==
LOC: EMS 05:03 → 3EC 13:41
PROVIDERS: ADMIT Psychiatry & Neurology Child & Adolescent Psychiatry; ATTEND Psychiatry & Neurology Child & Adolescent Psychiatry
DX: F25.0 Schizoaffective disorder, bipolar type (principal); F23 Brief psychotic disorder; E66.3 Overweight; Z20.822 Contact with and (suspected) exposure to COVID-19; F12.90 Cannabis use, unspecified, uncomplicated; F15.10 Other stimulant abuse, uncomplicated; F17.200 Nicotine dependence, unspecified, uncomplicated; F41.9 Anxiety disorder, unspecified; G40.909 Epilepsy, unspecified, not intractable, without status epilepticus; G62.9 Polyneuropathy, unspecified; Z68.1 Body mass index [BMI] 19.9 or less, adult; I25.2 Old myocardial infarction; Z59.00 Homelessness unspecified; Z91.19 Patient's noncompliance with other medical treatment and regimen
CPT/HCPCS: 80053; 80164; 85025; 99291; G0480; J1200; J1630; J2060; Q9967

== ENCOUNTER 2021-07-30 20:24 | Inpatient (IN) | payer MEDICAID, OTHER ==
[~2021-07-30] VITALS: Ht 177.8 cm; Wt 96.3 kg
[2021-07-30] MEDS ORDERED: ZOLPIDEM TARTRATE 10 MG TABLET PO PRN (23:00)
[2021-07-30 23:34] LABS: COVID AG,FIA SOURCE NASOPHARYNGEAL
[2021-07-30 23:39] LABS: BASOPHILS % (AUTO) 0.5 % (0.0-2.0); EOSINOPHILS % (AUTO) 3.2 % (1.0-6.0); HEMATOCRIT 42.9 % (36-46); HEMOGLOBIN 14.8 g/dL (12.0-16.0); LYMPHOCYTES # (AUTO) 1.9 K/uL (1.0-4.8); LYMPHOCYTES % (AUTO) 30.8 % (22.0-44.0); MEAN CORPUSCULAR HEMOGLOBIN 29.7 pg (26.0-34.0); MEAN CORPUSCULAR HGB CONC 34.6 G/dL (31.0-37.0); MEAN CORPUSCULAR VOLUME 86 fL (80-100); MONOCYTES % (AUTO) 16.9 % (2.0-9.0); NEUTROPHILS # (AUTO) 2.9 K/uL (1.8-7.7); NEUTROPHILS % (AUTO) 48.6 % (40.0-70.0); PLATELET COUNT (AUTO) 165 K/uL (150-450); RED BLOOD CELL COUNT(AUTO) 4.99 MIL/uL (4.00-5.20)
[2021-07-30 23:51] LABS: ANION GAP 7 mmol/L (8-16); CALCIUM, TOTAL 8.9 mg/dL (8.8-10.5); CARBON DIOXIDE 26 mmol/L (22-29); CHLORIDE 103 mmol/L (98-107); CREATININE 0.94 mg/dL (0.60-1.30); GLOMERULAR FILTR. RATE CALC > 60 mL/min (>60); GLUCOSE,RANDOM 89 mg/dL (70-110); POTASSIUM 3.7 mmol/L (3.5-5.1); SODIUM SERUM 136 mmol/L (136-145); UREA NITROGEN, BLOOD 9 mg/dL (7-18)
[2021-07-30 23:58] LABS: APPEARANCE,URINE CLEAR (CLEAR); BILIRUBIN,URINE NEGATIVE (NEGATIVE); GLUCOSE, URINE (UA) NEGATIVE (NEGATIVE); KETONES,URINE NEGATIVE (NEGATIVE); LEUKOCYTE ESTERASE ,URINE NEGATIVE (NEGATIVE); NITRATE,URINE NEGATIVE (NEGATIVE); OCCULT BLOOD,URINE NEGATIVE (NEGATIVE); PH,URINE 6.5 (5.0-8.0); PROTEIN,URINE NEGATIVE (NEGATIVE); UROBILINOGEN,URINE 0.2 mg/dL (<=1.0)
[2021-07-31 00:04] LABS: ALANINE AMINOTRANSFERASE 31 U/L (12-78); ALBUMIN 3.5 g/dL (3.4-5.0); ALKALINE PHOSPHATASE 66 U/L (46-116); ASPARTATE AMINOTRANSFERASE 19 U/L (15-37); BILIRUBIN,TOTAL 0.2 mg/dL (0.1-1.0); HCG,QUANTITATIVE < 1 mIU/mL (0-6); TOTAL PROTEIN, SERUM 7.4 g/dL (6.4-8.2)
[2021-07-31 00:08] LABS: AMPHET/METH SCREEN,URINE NEGATIVE (NEGATIVE); BARBITURATE SCREEN, URINE NEGATIVE (NEGATIVE); BENZODIAZEPINES SCREEN,URINE NEGATIVE (NEGATIVE); CANNABINOID SCREEN,URINE POSITIVE (NEGATIVE); COCAINE SCREEN,URINE NEGATIVE (NEGATIVE); METHADONE SCREEN, URINE NEGATIVE (NEGATIVE); OPIATE SCREEN,URINE NEGATIVE (NEGATIVE)
[2021-07-31 00:10] LABS: PHENCYCLIDINE SCREEN,URINE NEGATIVE (NEGATIVE)
[2021-07-31 03:24] LABS: CHOL/HDL RATIO 6.1 (3.9-5.7); CHOLESTEROL 140 mg/dL (131-200); HDL CHOLESTEROL 23 mg/dL (40-60); LDL CHOL (CALC.) 89 mg/dL (0-130); TRIGLYCERIDES 139 mg/dL (15-150)
[2021-07-31] MEDS: BusPIRone HCL 15 MG TABLET PO SCH ×2 (08:55→16:12)
[2021-07-31] MEDS: DIVALPROEX SODIUM 500 MG DR TABLET PO SCH ×2 (08:55→16:12)
[2021-07-31] MEDS: HALOPERIDOL 5 MG TABLET PO PRN (08:55)
[2021-07-31] MEDS: LORazepam 1 MG TABLET PO PRN (08:55)
[2021-07-31] MEDS: QUEtiapine FUMARATE 200 MG TABLET PO SCH ×2 (08:55→16:12)
[2021-07-31] MEDS: PARoxetine HCL 20 MG TABLET PO SCH (08:55)
[2021-07-31 09:01] LABS: AMPHET/METH SCREEN,URINE NEGATIVE (NEGATIVE); BARBITURATE SCREEN, URINE NEGATIVE (NEGATIVE); BENZODIAZEPINES SCREEN,URINE NEGATIVE (NEGATIVE); CANNABINOID SCREEN,URINE POSITIVE (NEGATIVE); COCAINE SCREEN,URINE NEGATIVE (NEGATIVE); METHADONE SCREEN, URINE NEGATIVE (NEGATIVE); OPIATE SCREEN,URINE NEGATIVE (NEGATIVE)
[2021-07-31 09:03] LABS: PHENCYCLIDINE SCREEN,URINE NEGATIVE (NEGATIVE)
[2021-07-31 09:05] VITALS: BP 146/98
[2021-07-31] MEDS ORDERED: PNEUMOCOCCAL VACCINE POLYVALENT 0.5 ML VIAL [PPSV23] IM. ONE (09:30)
[2021-07-31] MEDS ORDERED: INFLUENZA VIRUS VACCINE QVS 2021-22 (6MO+)/PF 60 MCG/0.5 ML SYRINGE IM. ONE (09:30)
[2021-07-31] MEDS: LevETIRAcetam 500 MG TABLET PO SCH ×2 (12:10→16:12)
[2021-07-31] MEDS: GABAPENTIN 300 MG CAPSULE PO SCH ×2 (12:20→16:12)
[2021-07-31] MEDS ORDERED: GuaiFENesin/D-METHORPHAN [SUGAR-FREE] 200-20MG/10 ML SYRUP UDCUP PO PRN (17:00)
[2021-07-31] MEDS ORDERED: MAG HYDROX/AL HYDROX/SIMETH ES 30 ML SUSPENSION UDCUP PO PRN (17:00)
[2021-07-31] MEDS ORDERED: ONDANSETRON HCL 4 MG TABLET PO PRN (17:00)
[2021-07-31] MEDS ORDERED: NICOTINE 14 MG/24 HOUR PATCH TD PRN (17:00)
[2021-07-31] MEDS ORDERED: LOPERAMIDE HCL 2 MG CAPSULE PO PRN (17:00)
[2021-07-31] MEDS ORDERED: CloNIDine HCL 0.1 MG TABLET PO PRN (17:00)
[2021-07-31] MEDS ORDERED: ALBUTEROL SULFATE HFA 90 MCG/PUFF 8 GM INHALER IH PRN (17:00)
[2021-07-31] MEDS ORDERED: IBUPROFEN 400 MG TABLET PO PRN (17:00)
[2021-07-31] MEDS ORDERED: PETROLATUM,WHITE 28 GM JELLY TP PRN (17:00)
[2021-07-31] MEDS ORDERED: DOCUSATE SODIUM 100 MG CAPSULE PO PRN (17:00)
[2021-07-31] MEDS ORDERED: MAGNESIUM HYDROXIDE SUSPENSION 30 ML UDCUP PO PRN (17:00)
[2021-07-31] MEDS ORDERED: ACETAMINOPHEN 325 MG TABLET PO PRN (17:00)
[2021-08-01] MEDS: GABAPENTIN 300 MG CAPSULE PO SCH ×3 (08:38→16:19)
[2021-08-01] MEDS: QUEtiapine FUMARATE 200 MG TABLET PO SCH ×2 (08:38→16:19)
[2021-08-01] MEDS: PARoxetine HCL 20 MG TABLET PO SCH (08:38)
[2021-08-01] MEDS: BusPIRone HCL 15 MG TABLET PO SCH ×2 (08:38→16:19)
[2021-08-01] MEDS: DIVALPROEX SODIUM 500 MG DR TABLET PO SCH ×2 (08:38→16:19)
[2021-08-01] MEDS: LevETIRAcetam 500 MG TABLET PO SCH ×2 (08:38→16:19)
[2021-08-01] MEDS: NICOTINE POLACRILEX 2 MG LOZENGE PO PRN ×2 (09:19→17:36)
[2021-08-01 13:59] LABS: COVID AG,FIA SOURCE NASOPHARYNGEAL
[2021-08-02] MEDS: NICOTINE POLACRILEX 2 MG LOZENGE PO PRN ×3 (04:17→18:15)
[2021-08-02] MEDS: LORazepam 1 MG TABLET PO PRN ×2 (08:06→16:41)
[2021-08-02] MEDS: GABAPENTIN 300 MG CAPSULE PO SCH ×3 (08:06→16:41)
[2021-08-02] MEDS: DIVALPROEX SODIUM 500 MG DR TABLET PO SCH ×2 (08:06→16:50)
[2021-08-02] MEDS: HALOPERIDOL 5 MG TABLET PO PRN ×2 (08:06→16:41)
[2021-08-02] MEDS: QUEtiapine FUMARATE 200 MG TABLET PO SCH ×2 (08:06→16:41)
[2021-08-02] MEDS: LevETIRAcetam 500 MG TABLET PO SCH ×2 (08:06→16:40)
[2021-08-02] MEDS: BusPIRone HCL 15 MG TABLET PO SCH ×2 (08:06→16:41)
[2021-08-02] MEDS: PARoxetine HCL 20 MG TABLET PO SCH (08:06)
[2021-08-02 10:44] VITALS: BP 115/58
[2021-08-02 16:51] VITALS: BP 118/63
[2021-08-02 17:05] VITALS: BP 118/63
[2021-08-03 08:00] VITALS: BP 129/85
[2021-08-03] MEDS: GABAPENTIN 300 MG CAPSULE PO SCH ×3 (08:20→16:22)
[2021-08-03] MEDS: PARoxetine HCL 20 MG TABLET PO SCH (08:20)
[2021-08-03] MEDS: LevETIRAcetam 500 MG TABLET PO SCH ×2 (08:20→16:23)
[2021-08-03] MEDS: QUEtiapine FUMARATE 200 MG TABLET PO SCH ×2 (08:20→16:22)
[2021-08-03] MEDS: BusPIRone HCL 15 MG TABLET PO SCH ×2 (08:20→16:22)
[2021-08-03] MEDS: DIVALPROEX SODIUM 500 MG DR TABLET PO SCH ×2 (08:21→16:22)
[2021-08-03] MEDS: NICOTINE POLACRILEX 2 MG LOZENGE PO PRN (08:24)
[2021-08-04] MEDS: NICOTINE POLACRILEX 2 MG LOZENGE PO PRN (04:10)
[2021-08-04] MEDS: DIVALPROEX SODIUM 500 MG DR TABLET PO SCH ×2 (09:03→16:09)
[2021-08-04] MEDS: BusPIRone HCL 15 MG TABLET PO SCH ×2 (09:03→16:08)
[2021-08-04] MEDS: PARoxetine HCL 20 MG TABLET PO SCH (09:03)
[2021-08-04] MEDS: QUEtiapine FUMARATE 200 MG TABLET PO SCH ×2 (09:03→16:08)
[2021-08-04] MEDS: GABAPENTIN 300 MG CAPSULE PO SCH ×3 (09:03→16:09)
[2021-08-04] MEDS: LevETIRAcetam 500 MG TABLET PO SCH ×2 (09:03→16:09)
[2021-08-04 10:00] VITALS: BP 109/59
[2021-08-04 10:22] LABS: COVID AG,FIA SOURCE NASAL SWAB
[2021-08-04] MEDS ORDERED: QUET200T PO (13:19)
[2021-08-04 16:37] VITALS: BP 124/76
[2021-08-05 08:35] VITALS: BP 163/92
[2021-08-05] MEDS: DIVALPROEX SODIUM 500 MG DR TABLET PO SCH (09:00)
[2021-08-05] MEDS: GABAPENTIN 300 MG CAPSULE PO SCH ×2 (09:00→13:28)
[2021-08-05] MEDS: BusPIRone HCL 15 MG TABLET PO SCH (09:00)
[2021-08-05] MEDS: LevETIRAcetam 500 MG TABLET PO SCH (09:00)
[2021-08-05] MEDS: PARoxetine HCL 20 MG TABLET PO SCH (09:00)
[2021-08-05] MEDS: QUEtiapine FUMARATE 200 MG TABLET PO SCH (09:00)
[2021-08-05] MEDS ORDERED: GABA-1181 PO (14:33)
[2021-08-05] MEDS ORDERED: PARO-37 PO (14:34)
[2021-08-05] MEDS ORDERED: DIVA-112 PO (14:34)
[2021-08-05] MEDS ORDERED: LEVE500T20 PO (14:34)
[2021-08-05] MEDS ORDERED: QUET200T PO (14:34)
[2021-08-05] MEDS ORDERED: BUSP15TA3 PO (14:34)
== END 2021-08-05 14:45 | disposition home or self-care (01) | DRG 750 ==
LOC: EMS 20:26 → 3EC 23:33
PROVIDERS: ADMIT Psychiatry & Neurology Psychiatry; ATTEND Psychiatry & Neurology Child & Adolescent Psychiatry
DX: F25.1 Schizoaffective disorder, depressive type (principal); U07.1 COVID-19; G40.909 Epilepsy, unspecified, not intractable, without status epilepticus; R45.851 Suicidal ideations; F32.A Depression, unspecified; F12.10 Cannabis abuse, uncomplicated; F64.0 Transsexualism; F15.10 Other stimulant abuse, uncomplicated; F17.210 Nicotine dependence, cigarettes, uncomplicated; Z91.51 Personal history of suicidal behavior; Z79.899 Other long term (current) drug therapy
CPT/HCPCS: 80053; 80061; 81003; 84702; 85025; 99285; G0480; Q9967

== ENCOUNTER 2021-08-09 18:09 | Emergency (ER) | payer MEDICAID, OTHER ==
[~2021-08-09] VITALS: Ht 162.6 cm; Wt 96.3 kg
[~2021-08-09 18:09] MED LIST changes: +QUET200T PO
[2021-08-09 21:58] VITALS: BP 109/83
== END 2021-08-09 23:09 | disposition home or self-care (01) ==
LOC: EMS 18:10
DX: R56.9 Unspecified convulsions (principal); F32.9 Major depressive disorder, single episode, unspecified; F17.210 Nicotine dependence, cigarettes, uncomplicated
CPT/HCPCS: 93005; 99283

== ENCOUNTER 2021-08-10 07:42 | Emergency (ER) | payer OTHER ==
[~2021-08-10] VITALS: Ht 177.8 cm; Wt 81.8 kg
[2021-08-10 09:27] LABS: COVID AG,FIA SOURCE NASOPHARYNGEAL
[2021-08-10 10:10] VITALS: BP 141/73
== END 2021-08-10 10:20 | disposition home or self-care (01) ==
LOC: EMS 07:46
DX: S00.83XA Contusion of other part of head, initial encounter (principal); F25.9 Schizoaffective disorder, unspecified; F32.9 Major depressive disorder, single episode, unspecified; F17.210 Nicotine dependence, cigarettes, uncomplicated; F41.9 Anxiety disorder, unspecified; Z20.822 Contact with and (suspected) exposure to COVID-19; X58.XXXA Exposure to other specified factors, initial encounter; Y93.89 Activity, other specified; Y92.89 Other specified places as the place of occurrence of the external cause; Y99.8 Other external cause status
CPT/HCPCS: 71046; 99284

== ENCOUNTER 2021-08-13 08:34 | Emergency (ER) | payer OTHER ==
[~2021-08-13] VITALS: Ht 177.8 cm; Wt 72.7 kg
[2021-08-13 08:46] VITALS: BP 122/91
== END 2021-08-13 09:51 | disposition home or self-care (01) ==
LOC: EMS 08:37
DX: F41.9 Anxiety disorder, unspecified (principal); F25.0 Schizoaffective disorder, bipolar type; F32.9 Major depressive disorder, single episode, unspecified; F17.210 Nicotine dependence, cigarettes, uncomplicated; Z79.899 Other long term (current) drug therapy
CPT/HCPCS: 93005; 99284; Z7502